=== PATIENT | female | born 1935 | race Caucasian/White ===

== ENCOUNTER 2017-10-08 03:48 | Inpatient (IN) | payer MEDICARE, BC ==
[2017-10-08] MEDS ORDERED: Ondansetron ODT 8 MG TAB ONE (04:11)
[2017-10-08 04:46] LABS: Hemoglobin 14.7 g/dL (12.0-16.0); Mean Corpuscular HGB CONC 33.6 g/dL (32.0-36.0); Mean Corpuscular Hemoglobin 33.3 pg (27.0-31.0); Mean Corpuscular Volume 99.1 fl (81.0-99.0); Mean Platelet Volume 8.5 fL (7.4-10.4); Platelet Count 218 thou/uL (130-400); RBC Distribution Width 12.3 % (11.5-14.5); Red Blood Cell (RBC) Count 4.41 mill/uL (4.20-5.40); White Blood Cell (WBC) Count 26.9 thou/uL (4.8-10.8)
[2017-10-08 05:06] LABS: ALT (SGPT) 31 U/L (8-55); AST (SGOT) 43 U/L (5-34); Albumin 4.1 g/dL (3.4-4.8); Alkaline Phosphatase 59 U/L (40-150); Anion Gap 19 mmol/L (10-20); BUN (Urea Nitrogen) 15 mg/dL (9.8-20.1); Band 13 % (5-11); Bilirubin, Total 0.6 mg/dL (0.2-1.2); Calc. Creatinine Clearance 0 mL/min (70-130); Calcium 10.4 mg/dL (7.8-10.44); Carbon Dioxide 24 mmol/L (23-31); Chloride 101 mmol/L (98-107); Estimated GFR-MDRD 38; Globulin 3.3 g/dL (2.4-3.5); Glucose 169 mg/dL (83-110); Lipase 16 U/L (8-78); Lymphocytes 10 % (21-51); MDiff Complete? YES; Monocytes 9 % (0-10); Neutrophil 68 % (42-75); Potassium 3.8 mmol/L (3.5-5.1); Protein, Total 7.4 g/dL (6.0-8.3); Sodium 140 mmol/L (136-145)
[2017-10-08 05:20] LABS: Bilirubin Small (Negative); Blood, Urine Negative (Negative); Glucose, Urine (Dipstick) Negative (Negative); Leukocyte Negative (Negative); Nitrite Negative (Negative); Protein, Urine (Dipstick) Trace mg/dL (Neg-Trace); Specific Gravity, Urine 1.025 (1.005-1.030)
[2017-10-08 05:22] LABS: Clarity Clear (Clear)
[2017-10-08] MEDS ORDERED: Morphine 4 MG/ML VIAL ONE (05:34)
[2017-10-08] MEDS ORDERED: Promethazine HCl 25 MG/ML VIAL ONE (05:34)
[2017-10-08] MEDS ORDERED: hydrALAZINE 20 MG/ML VIAL ONE (05:34)
[2017-10-08 06:25] LABS: Other Microscopic Description Less than 2 mL rec'd
[2017-10-08] MEDS ORDERED: metroNIDAZOLE 500 MG/100 ML BAG ONE (06:36)
[2017-10-08] MEDS ORDERED: HYDROcodone/Acetaminophen 10/325 mg Tablet PO PRN (08:07)
[2017-10-08] MEDS ORDERED: Acetaminophen 325 MG TAB PO PRN (08:07)
[2017-10-08] MEDS ORDERED: HYDROcodone/Acetaminophen 5/325 mg Tablet PO PRN (08:07)
[2017-10-08] MEDS ORDERED: Ondansetron ODT 4 MG TAB PO PRN (08:07)
[2017-10-08] MEDS ORDERED: Ondansetron HCl/PF 4 MG/2 ML Vial IVP PRN (08:07)
[2017-10-08 08:17] VITALS: BMI 22.8
[2017-10-08] MEDS: Sodium Chloride 0.9% 1,000 ML IV SCH ×2 (08:42→19:24)
[2017-10-08] MEDS ORDERED: Famotidine/PF 20 mg/2ml Vial SLOW IVP SCH (09:00)
--- NOTE | 2017-10-08 09:00 | CT ---
PRELIMINARY REPORT/[facility]/EMERGENCY AFTER HOURS PROCEDURE: Addendum created by Constantine Oviedo MD on 10/08/2017 6:09 AM Central Time ([place] & [place]) Findings were discussed with Brianne Brandon at 10/08/2017 6:09 AM CDT. Initial Report created on 10/08/2017 6:00 AM Central Time ([place] & [place]) EXAM: CT Abdomen and Pelvis Without Intravenous Contrast EXAM DATE/TIME: Exam ordered 10/08/2017 5:42 AM CLINICAL HISTORY: 82 years old, female; Signs and symptoms; Nausea and vomiting; Prior surgery; Surgery type: Surgical history of appendectomy, surgical history of hysterectomy, pacemaker. Left hip replacement, carpal tu nnel, skin ca removed x3, hemmoroidectomy; Patient HX: Er 14; F 82 presents to ed with n/v/d that beg an thursday at 1800. Denies any sick contacts. Pt denies blood in her vomit or fever. States that he r abdomen has had a cramping sensation since onset. Pt did not receive any medications from ems. HX o f multiple myeloma, currently in remission. TECHNIQUE: Axial computed tomography images of the abdomen and pelvis without intravenous contrast. Coronal reformatted images were created and reviewed. COMPARISON: No relevant prior studies available. FINDINGS: Lower thorax: There is subpleural atelectasis of the dependent portions of the lungs. A moderate hiatal hernia is present. ABDOMEN: Liver: There are no focal liver lesions identified. Gallbladder and bile ducts: The gallbladder is normal. There is no evidence of biliary ductal dilatio n. No calcified stones. Pancreas: The pancreas appears normal. No ductal dilation. Spleen: The spleen is normal. Adrenals: The adrenal glands are normal. Kidneys and ureters: The kidneys appear normal. No obstructing stones. No hydronephrosis. Stomach and bowel: There is marked thickening of the descending and sigmoid colon with marked pericol onic inflammatory stranding suggestive of colitis of infectious, inflammatory or ischemic etiology. T he stomach is normal. The duodenum is unremarkable. Thickening of the ascending and transverse colon may also be present although this may be related to under distention rather than definite colitis. Appendix: No findings to suggest acute appendicitis. PELVIS: Bladder: The bladder is normal. There is fluid in the LEFT paracolic bladder. No stones. Reproductive: The uterus is not visualized, and may be atrophic or surgically absent. ABDOMEN and PELVIS: Intraperitoneal space: There is a small amount of free pelvic fluid present. No free air. Bones/joints: Patient is post LEFT hip arthroplasty. No acute fracture. No dislocation. Soft tissues: Normal. Vasculature: Normal. No abdominal aortic aneurysm. Lymph nodes: Normal. No enlarged lymph nodes. IMPRESSION: There is marked thickening of the descending and sigmoid colon with extensive pericolonic inflammator y stranding suggestive of colitis of infectious, inflammatory or ischemic etiology. Thank you for allowing us to participate in the care of your patient. Dictated and Authenticated by: Constantine Oviedo MD 10/08/2017 6:00 AM Central Time ([place] & [place]) FINAL REPORT CT ABDOMEN AND PELVIS NONCONTRAST: DATE: 10/08/17. TIME: Performed on an emergency basis at 0543 hours. HISTORY: Flank pain. COMPARISON: 06/21/16. FINDINGS: Findings agree with the preliminary report from [facility]. There is no CT evidence of urinar y tract obstruction or calcification. Lack of contrast limits evaluation for other abnormalities. S evere inflammation of the left colon in its long segment. Cause is not apparent. It is greater than on the 2016 exam. POS: [facility]
[2017-10-08] MEDS: Famotidine 40 MG/4 ML VIAL SLOW IVP SCH ×2 (09:39→20:34)
[2017-10-08] MEDS: metroNIDAZOLE 500 MG in Premix Bag 1 BAG IVPB SCH ×2 (12:00→18:10)
--- NOTE | 2017-10-08 13:59 | HP ---
DATE OF ADMISSION: 10/08/2017 PRIMARY CARE PHYSICIAN: Dr. Luis Enrique Aquino PRIMARY ONCOLOGIST: Dr. Jimenez PRIMARY SUPERINTENDENT MENAGERIE: Dr. Tapan Mireles TIME OF SERVICE: 1000 CHIEF COMPLAINT: Abdominal pain, nausea, vomiting, diarrhea. HISTORY OF PRESENT ILLNESS: Ms. Brian is an 82-year-old female with a history of multiple myeloma in itially thought to be in remission, but was recently told she may need to restart medications for chr onic back pain, hypertension, hyperlipidemia who comes into the emergency department, the evening of 10/07/2017 for complaints of acute onset of abdominal pain. The pain started around 1800 hours. It was described as sharp, crampy, diffuse pain. It was accompanied by nausea and vomiting, and multipl e episodes of watery stools without blood. She was seen in the emergency department, white blood cell count elevated at 26.9 with a bandemia, h eart rate was normal, but is on atenolol, she was noted to have increased respiratory rate, temperatu re 99.0, and good oxygen saturations. No lactic acid was done. In the emergency department, she got IV fluids, IV antibiotics and a CT scan that showed a right-side d colitis. We were subsequently called for admission. The patient was accepted by the director of partner marketing early this morning and I am seeing her for a formal evalua tion and admission. She is still complaining of pain. She is complaining of dry mouth and being thirsty. She denies any current abdominal pain, no fevers, chills or rigors. No hematemesis or hematochezia, no melena. PAST MEDICAL HISTORY: 1. Multiple myeloma. 2. Chronic back pain. 3. Hyperlipidemia. 4. Hypertension. 5. Hypokalemia, recurrent. 6. Bradycardia status post permanent pacemaker. PAST SURGICAL HISTORY: 1. Appendectomy. 2. Total hysterectomy and bilateral salpingo-oophorectomy. 3. Permanent pacemaker placement. 4. Left total hip arthroplasty. 5. Bilateral carpal tunnel release. 6. Skin cancer removal x3. 7. Hemorrhoidectomy. HOME MEDICATIONS: She is unsure, current list in the computer shows: 1. Clonidine TTS 3. 2. Atenolol 50 mg p.o. daily. 3. Lisinopril 2.5 mg daily. 4. Folic acid 1 mg daily. 5. Valtrex 500 mg daily. 6. Tramadol 50 mg p.o. q.6 hours p.r.n. 7. Premarin 0.625 mg p.o. daily. 8. Protonix 20 mg daily. 9. Nitrofurantoin 100 mg p.o. b.i.d. ALLERGIES: STRAWBERRY, COFFEE, CODEINE, and CHOCOLATE FLAVOR. FAMILY HISTORY: Negative for clotting or bleeding disorder, no immune dysfunction, no blood tumors s he knows of. SOCIAL HISTORY: Negative for habits x3. REVIEW OF SYSTEMS: A 10-point review of systems was performed and was negative for all systems excep t as per HPI. PHYSICAL EXAMINATION: VITAL SIGNS: Temperature 97.7, pulse 65, blood pressure 219/108, respiratory rate 20, satting 95% on room air. Blood pressure currently 111/60. GENERAL: She is awake. She is alert. She is oriented x3. She has an essential tremor. She is not noted to be in any acute distress. She looks like she does not feel well. HEENT: Head is normocephalic, atraumatic. Pupils are equal, reactive bilaterally, mucous membranes are moist. She has no visible lesions or thrush. NECK: Supple. She has no lymphadenopathy, no JVD, no thyromegaly. She has normal carotid upstrokes . I do not appreciate bruits. CHEST: Her lungs are clear. She has good air movement. Symmetrical chest excursion. No wheeze, no rales, no rhonchi. CARDIOVASCULAR: She has a normal cardiac and regular. Normal S1 and S2. I do not appreciate murmur s. ABDOMEN: Soft, diffusely tender on the right more than the left. She has no rebound, rigidity or gu arding. She has hyperactive bowel sounds present x4 quadrants. EXTREMITIES: No cyanosis, clubbing with trace pedal edema. SKIN: Warm and well perfused. She has no rashes or lesions. NEUROLOGIC: Cranial nerves II-XII grossly intact. She does have a kinetic tremor of her arms and up per body. She has no resting tremors. No other focal neurologic deficits and normal speech pattern. MUSCULOSKELETAL: Shows large joints to be uninflamed. She has no palpable effusions, good range of motion and no inflammation. LABORATORY DATA: Sodium 140, potassium 3.8, chloride 101, bicarb 24, BUN 15, creatinine 1.33, glucos e 169 and calcium 10.4. The liver functions are normal except for AST barely elevated at 43. CBC sh owed a white count of 26.9. She has 68% granulocytes, 13% bands. Hemoglobin 14.7, hematocrit 43.7. CT scan of the abdomen and pelvis in the emergency department showed a thickening of the descending a nd sigmoid colon on the left with extensive pericolonic inflammatory stranding suggestive of colitis and unspecified if infectious, inflammatory or ischemic. ASSESSMENT AND PLAN: 1. Left-sided colitis, descending and sigmoid involvement. Continue her on Levaquin and Flagyl. We will ask GI to evaluate. We will keep her n.p.o. at present except for ice chips. She may need end oscopy. White blood cell count was 26.9, she was tachypneic on arrival, she was hypertensive, rather than hypotensive, had no fevers that would suggest a bacterial infection. She does meet sepsis crit ertom. She got fluids in the emergency department appropriately and antibiotics. We will continue to follow. I have sent off stool studies for viral, C. diff, and bacterial infections. We will follow up on the results. 2. Multiple myeloma, not acutely active. 3. Hypertension. Continue home medications when she is able to take oral, we will have p.r.n. hydra lazine if needed. 4. Hyperlipidemia. 5. History of sinus bradycardia or symptomatic bradycardia status post permanent pacemaker placement .
[2017-10-08] MEDS: Dicyclomine 10 MG CAP PO PRN (20:33)
[2017-10-08] MEDS: traMADol HCl 50 MG TAB PO PRN (20:33)
--- NOTE | 2017-10-08 21:12 | CON ---
DATE OF CONSULTATION: 10/08/2017 HISTORY OF PRESENT ILLNESS: Patient is an 82-year-old female who was in her normal state o f health until about 24-48 hours prior to admission when she developed severe abdominal pain. She de nies any recent antibiotic use, any nausea or vomiting. She had diarrhea that is somewhat blood ting ed. She is having ongoing treatment for multiple myeloma, which includes an injection once a week. PAST MEDICAL HISTORY: Significant for multiple myeloma, chronic back pain, hyperlipidemia, hypertens ion. PAST SURGICAL HISTORY: Includes pacemaker, hemorrhoidectomy, hip surgery, hysterectomy. HOME MEDICATIONS: Include multivitamin 1 p.o. daily, Tenormin 50 mg p.o. daily, Ecotrin 81 mg p.o. d aily, folic acid 1 mg p.o. daily, Catapres patch 0.3 mg every 7 days, potassium chloride 10 mEq p.o. b.i.d., valacyclovir 500 mg p.o. daily, tramadol 50 mg p.o. q.6 hours. ALLERGIES: Include STRAWBERRIES, CHOCOLATE, CODEINE, COFFEE, and ACETAMINOPHEN. SOCIAL HISTORY: She does not smoke or drink. FAMILY HISTORY: Negative for GI or liver disease. REVIEW OF SYSTEMS: Constitutional: No fever or chills, no weight loss. Eyes: No blurred vision or double vision. ENT: No sore throat or earaches. Cardiovascular: No chest pain or palpitation. P ulmonary: No shortness of breath, cough, or wheezing. Gastrointestinal: See above. : No hematu jessie or dysuria. Musculoskeletal: No joint pain or muscle ache. Skin: No rashes. Neurologic: No numbness or seizure activity. PHYSICAL EXAMINATION: GENERAL: Shows an ill-appearing old female in no acute distress. VITAL SIGNS: Temperature 97.9, pulse 83, respiratory rate 18, blood pressure 122/63. HEENT: Unremarkable. NECK: Supple. CHEST: Clear. CARDIOVASCULAR: Regular rate and rhythm. ABDOMEN: Slightly protuberant, diffusely tender to minimal palpation. Bowel sounds are hypoactive. RECTAL: Deferred. EXTREMITIES: Normal. NEUROLOGIC: Nonfocal. LABORATORY DATA: Shows a white blood cell count of 26.9, 13% bands. Creatinine 1.33, glucose 169, A ST 43. Urinalysis is negative. Abdominal pelvic CT shows marked thickening of the descending and si gmoid colon with extensive pericolonic inflammatory stranding. Laboratory shows a stool lactoferrin to be positive. Stool for rotavirus is negative. Stool for Clostridium difficile is both antigen an d toxin positive. Stool occult blood is positive. ASSESSMENT: 1. Clostridium difficile colitis. 2. History of multiple myeloma. RECOMMENDATIONS: 1. P.o. vancomycin. 2. Agree with IV metronidazole. 3. Hydration.
[2017-10-09] MEDS: metroNIDAZOLE 500 MG in Premix Bag 1 BAG IVPB SCH ×5 (00:24→23:32)
[2017-10-09] MEDS: traMADol HCl 50 MG TAB PO PRN (00:37)
[2017-10-09] MEDS: Sodium Chloride 0.9% 1,000 ML IV SCH ×4 (05:12→20:19)
[2017-10-09] MEDS: Dicyclomine 10 MG CAP PO PRN (05:48)
[2017-10-09 06:08] LABS: ALT (SGPT) 17 U/L (8-55); AST (SGOT) 21 U/L (5-34); Albumin 2.9 g/dL (3.4-4.8); Alkaline Phosphatase 33 U/L (40-150); Anion Gap 9 mmol/L (10-20); BUN (Urea Nitrogen) 24 mg/dL (9.8-20.1); Bilirubin, Total 0.8 mg/dL (0.2-1.2); Calc. Creatinine Clearance 42 mL/min (70-130); Calcium 7.9 mg/dL (7.8-10.44); Carbon Dioxide 25 mmol/L (23-31); Chloride 105 mmol/L (98-107); Estimated GFR-MDRD 57; Globulin 2.1 g/dL (2.4-3.5); Glucose 96 mg/dL (83-110); Magnesium 1.4 mg/dL (1.6-2.6); Potassium 3.4 mmol/L (3.5-5.1); Sodium 136 mmol/L (136-145)
[2017-10-09 06:12] LABS: Band 13 % (5-11); Hemoglobin 10.9 g/dL (12.0-16.0); Lymphocytes 6 % (21-51); MDiff Complete? YES; Mean Corpuscular Hemoglobin 34.3 pg (27.0-31.0); Mean Platelet Volume 8.4 fL (7.4-10.4); Monocytes 7 % (0-10); Myelocyte 1 % (0-0); Neutrophil 73 % (42-75); Platelet Count 168 thou/uL (130-400); RBC Distribution Width 12.6 % (11.5-14.5); Red Blood Cell (RBC) Count 3.18 mill/uL (4.20-5.40); White Blood Cell (WBC) Count 21.7 thou/uL (4.8-10.8)
[2017-10-09] MEDS ORDERED: Magnesium 2 GM/NS 0.9% 100 ML 2 GM in Premix Bag 1 BAG IVPB SCH (08:00)
[2017-10-09] MEDS: Potassium Chloride 20 MEQ TAB PO SCH ×2 (08:46→12:05)
[2017-10-09] MEDS: Vancomycin HCl 25 MG/ML Oral PO SCH ×4 (08:46→20:17)
[2017-10-09] MEDS: Famotidine 40 MG/4 ML VIAL SLOW IVP SCH ×2 (10:43→20:19)
--- NOTE | 2017-10-09 15:45 | PRG ---
DATE OF SERVICE: 10/09/2017 SUBJECTIVE: The patient is feeling much better today. She is having less bowel movements and much l ess pain. OBJECTIVE: VITAL SIGNS: Temperature 98.2, pulse 70, respiratory rate 18, blood pressure 95/55. LABORATORY DATA: CBC shows a white blood cell count of 21.5, hemoglobin 10.9 and 13% bands. ASSESSMENT: Clostridium difficile colitis - improved. RECOMMENDATIONS: Continue vancomycin.
--- NOTE | 2017-10-09 22:23 | PDOC.PN ---
- Subjective Encounter Start Date: 10/09/17 Encounter Start Time: 09:45 feeling better, fabby some po, no f/C, no N/v, diarrhea slowing, no blood. IV flagyl, po vanc, GI following 10 point ROS performed and neg for all systems except as per HPI - Objective Resuscitation Status: Resuscitation Status FULL:Full Resuscitation MAR Reviewed: Yes Vital Signs & Weight: Vital Signs (12 hours) Temp Pulse Resp BP Pulse Ox 10/09/17 21:36 99.6 F 82 18 94 L 10/09/17 20:00 99.6 F 82 18 118/63 94 L Weight Weight 125 lb I&O: 10/08/17 10/09/17 10/10/17 06:59 06:59 06:59 Intake Total 1650 940 Output Total 350 Balance 1300 940 Result Diagrams: 10/10/17 04:39 10/10/17 04:39 Phys Exam - Physical Examination Constitutional: NAD HEENT: PERRLA, moist MMs, sclera anicteric, oral pharynx no lesions Neck: no nodes, no JVD, supple, full ROM Respiratory: no wheezing, no rales, no rhonchi, clear to auscultation bilateral Cardiovascular: RRR, no significant murmur, no rub Gastrointestinal: soft, non-tender, no distention, positive bowel sounds Musculoskeletal: pulses present, edema present Neurological: non-focal, normal sensation, moves all 4 limbs Lymphatic: no nodes Psychiatric: normal affect, A&O x 3 Skin: no rash, normal turgor, cap refill <2 seconds Dx/Plan (1) C. difficile colitis Status: Acute Comment: IV flagyl and po vanc. CCM, po, out of bed (2) Sepsis Code(s): A41.9 - SEPSIS, UNSPECIFIED ORGANISM Status: Acute Qualifiers: Sepsis type: sepsis due to unspecified organism Qualified Code(s): A41.9 - Sepsis, unspecified organism (3) Dehydration Code(s): E86.0 - DEHYDRATION Status: Resolved Comment: (4) GERD (gastroesophageal reflux disease) Code(s): K21.9 - GASTRO-ESOPHAGEAL REFLUX DISEASE WITHOUT ESOPHAGITIS Status: Chronic Qualifiers: Esophagitis presence: without esophagitis Qualified Code(s): K21.9 - Gastro -esophageal reflux disease without esophagitis (5) Hyperlipidemia Code(s): E78.5 - HYPERLIPIDEMIA, UNSPECIFIED Status: Chronic Qualifiers: Hyperlipidemia type: unspecified Qualified Code(s): E78.5 - Hyperlipidemia , unspecified (6) Hypertension Code(s): I10 - ESSENTIAL (PRIMARY) HYPERTENSION Status: Chronic Qualifiers: Hypertension type: essential hypertension Qualified Code(s): I10 - Essential (primary) hypertension (7) Multiple myeloma in remission Code(s): C90.01 - MULTIPLE MYELOMA IN REMISSION Status: Chronic Comment: - Plan cont current plan of care, plan discussed w/ family, continue antibiotics, PT/OT , out of bed/ambulate, DVT proph w/SCDs * .
[2017-10-10] MEDS: Dicyclomine 10 MG CAP PO PRN (03:18)
[2017-10-10 04:57] LABS: #Eosinphils 0.1 thou/uL (0.0-0.7); #Lymphocytes 1.9 thou/uL (1.20-3.40); #Monocytes 1.8 thou/uL (0.11-0.59); #Neutrophils 10.3 thou/uL (1.40-6.50); %Basophils 0.1 % (0.0-1.0); %Eosinophils 0.5 % (0.0-10.0); %Lymphocytes 13.8 % (21.0-51.0); %Monocytes 12.9 % (0.0-10.0); %Neutrophils 72.8 % (42.0-75.0); Mean Corpuscular HGB CONC 34.1 g/dL (32.0-36.0); Mean Corpuscular Hemoglobin 35.2 pg (27.0-31.0); Mean Platelet Volume 8.3 fL (7.4-10.4); Platelet Count 169 thou/uL (130-400); RBC Distribution Width 12.4 % (11.5-14.5); Red Blood Cell (RBC) Count 2.84 mill/uL (4.20-5.40); White Blood Cell (WBC) Count 14.1 thou/uL (4.8-10.8)
[2017-10-10 05:15] LABS: Anion Gap 11 mmol/L (10-20); BUN (Urea Nitrogen) 14 mg/dL (9.8-20.1); Calc. Creatinine Clearance 48 mL/min (70-130); Calcium 7.9 mg/dL (7.8-10.44); Carbon Dioxide 21 mmol/L (23-31); Chloride 108 mmol/L (98-107); Estimated GFR-MDRD 66; Glucose 82 mg/dL (83-110); Magnesium 1.7 mg/dL (1.6-2.6); Potassium 3.6 mmol/L (3.5-5.1); Sodium 136 mmol/L (136-145)
[2017-10-10] MEDS: metroNIDAZOLE 500 MG in Premix Bag 1 BAG IVPB SCH (05:33)
[2017-10-10] MEDS: Sodium Chloride 0.9% 1,000 ML IV SCH (05:33)
[2017-10-10] MEDS: Vancomycin HCl 25 MG/ML Oral PO SCH ×4 (09:02→19:40)
[2017-10-10] MEDS: Famotidine 40 MG/4 ML VIAL SLOW IVP SCH ×2 (09:03→19:37)
--- NOTE | 2017-10-10 11:26 | PRG ---
DATE OF SERVICE: 10/10/2017 SUBJECTIVE: The patient is feeling much better. She is having less pain. She is not having any emile sea or vomiting. Her diarrhea seems to be improved. OBJECTIVE: VITAL SIGNS: Temperature 98.6, pulse 68, respiratory rate 16, blood pressure 120/67. CHEST: Clear. CARDIOVASCULAR: Regular rate and rhythm. ABDOMEN: Diffusely tender, but less so than on initial examination. LABORATORY DATA: Shows a white blood cell count of 14.1, hemoglobin 10, hematocrit 29.4. ASSESSMENT: 1. Clostridium difficile colitis - improving. 2. History of multiple myeloma. RECOMMENDATIONS: 1. Continue vancomycin orally. 2. Discontinue metronidazole IV. 3. Stable for discharge tomorrow if improvement continues.
--- NOTE | 2017-10-10 14:21 | PDOC.PN ---
- Subjective Encounter Start Date: 10/10/17 Encounter Start Time: 09:50 feeling much better. Not eating well, not drinking as much. refusing to get up and walk with walking program. [facility] pt and daughter gabriela to ambulate. IV failed and removed, will attempt to leave out, change Flagyl to po for today and then encourage po intake. \no F/C, no n/v/C, had 10+ small BM 7p-7a and 5 more since 7a. starting to become thicker. 10 point ROS performed and neg for all systems except as per HPI - Objective Resuscitation Status: Resuscitation Status FULL:Full Resuscitation MAR Reviewed: Yes Vital Signs & Weight: Vital Signs (12 hours) Temp Pulse Resp BP Pulse Ox 10/10/17 11:45 98.4 F 74 16 139/67 95 10/10/17 08:00 98.6 F 68 16 95 10/10/17 07:10 98.6 F 68 16 128/67 95 Weight Weight 125 lb I&O: 10/09/17 10/10/17 10/11/17 06:59 06:59 06:59 Intake Total 1650 1570 Output Total 350 Balance 1300 1570 Result Diagrams: 10/10/17 04:39 10/10/17 04:39 Phys Exam - Physical Examination Constitutional: NAD HEENT: PERRLA, moist MMs, sclera anicteric, oral pharynx no lesions Neck: no nodes, no JVD, supple, full ROM Respiratory: no wheezing, no rales, no rhonchi, clear to auscultation bilateral Cardiovascular: RRR, no significant murmur, no rub Gastrointestinal: soft, non-tender, no distention, positive bowel sounds Musculoskeletal: pulses present, edema present Neurological: non-focal, normal sensation, moves all 4 limbs Lymphatic: no nodes Psychiatric: normal affect, A&O x 3 Skin: no rash, normal turgor, cap refill <2 seconds Dx/Plan (1) C. difficile colitis Status: Acute Comment: po flagyl and po vanc. CCM, po, out of bed, plan to stop po flagyl in AM (2) Sepsis Code(s): A41.9 - SEPSIS, UNSPECIFIED ORGANISM Status: Acute Qualifiers: Sepsis type: sepsis due to unspecified organism Qualified Code(s): A41.9 - Sepsis, unspecified organism (3) Dehydration Code(s): E86.0 - DEHYDRATION Status: Resolved Comment: (4) GERD (gastroesophageal reflux disease) Code(s): K21.9 - GASTRO-ESOPHAGEAL REFLUX DISEASE WITHOUT ESOPHAGITIS Status: Chronic Qualifiers: Esophagitis presence: without esophagitis Qualified Code(s): K21.9 - Gastro -esophageal reflux disease without esophagitis (5) Hyperlipidemia Code(s): E78.5 - HYPERLIPIDEMIA, UNSPECIFIED Status: Chronic Qualifiers: Hyperlipidemia type: unspecified Qualified Code(s): E78.5 - Hyperlipidemia , unspecified (6) Hypertension Code(s): I10 - ESSENTIAL (PRIMARY) HYPERTENSION Status: Chronic Qualifiers: Hypertension type: essential hypertension Qualified Code(s): I10 - Essential (primary) hypertension (7) Multiple myeloma in remission Code(s): C90.01 - MULTIPLE MYELOMA IN REMISSION Status: Chronic Comment: - Plan * .
[2017-10-10] MEDS ORDERED: metroNIDAZOLE 500 MG TAB PO SCH (15:00)
[2017-10-10 23:07] LABS: Norovirus GI Negative (Negative); Norovirus GII Negative (Negative)
[2017-10-11] MEDS: traMADol HCl 50 MG TAB PO PRN (00:15)
[2017-10-11 05:24] LABS: Anion Gap 8 mmol/L (10-20); BUN (Urea Nitrogen) 7 mg/dL (9.8-20.1); Calc. Creatinine Clearance 51 mL/min (70-130); Calcium 8.3 mg/dL (7.8-10.44); Carbon Dioxide 23 mmol/L (23-31); Chloride 110 mmol/L (98-107); Estimated GFR-MDRD 72; Glucose 74 mg/dL (83-110); Magnesium 1.7 mg/dL (1.6-2.6); Potassium 3.4 mmol/L (3.5-5.1); Sodium 138 mmol/L (136-145)
[2017-10-11 05:41] LABS: Band 1 % (5-11); Eosinophils 1 % (0-10); Hemoglobin 9.8 g/dL (12.0-16.0); Lymphocytes 18 % (21-51); MDiff Complete? YES; Mean Platelet Volume 8.6 fL (7.4-10.4); Monocytes 13 % (0-10); Neutrophil 67 % (42-75); Platelet Count 195 thou/uL (130-400); RBC Distribution Width 12.2 % (11.5-14.5); Red Blood Cell (RBC) Count 2.81 mill/uL (4.20-5.40)
--- NOTE | 2017-10-11 09:43 | PRG ---
DATE OF SERVICE: 10/11/2017 SUBJECTIVE: The patient is feeling much better. She has only had 2 bowel movements today. She has no abdominal pain. She has no nausea or vomiting. OBJECTIVE: VITAL SIGNS: Temperature 98.2, pulse 65, respiratory rate 18, blood pressure 122/86. CHEST: Clear. CARDIOVASCULAR: Regular rate and rhythm. ABDOMEN: Soft and nontender. LABORATORY DATA: Shows white blood cell count of 9.0, hemoglobin 9.8, hematocrit 28.9. Chemistry sh owed potassium 3.4, chloride 110, BUN 7, and glucose 74. ASSESSMENT: 1. Clostridium difficile colitis - improved. 2. History of multiple myeloma. RECOMMENDATIONS: 1. Treatment course of vancomycin of 2 weeks total. 2. Recommended beginning over the counter probiotic Florastor for 30 days. 3. Follow up in GI in 2-3 weeks. 4. Stable for discharge from gastrointestinal standpoint.
[2017-10-11] MEDS ORDERED: Aspirin 81 mg Enteric Coated Tablet PO SCH (09:45)
[2017-10-11] MEDS ORDERED: Folic Acid 1 MG TAB PO SCH (09:45)
[2017-10-11] MEDS ORDERED: Multivitamin W/ Minerals 1 TAB PO SCH (09:45)
[2017-10-11] MEDS ORDERED: Atenolol 25 MG TAB PO SCH (09:45)
[2017-10-11] MEDS ORDERED: valACYclovir 500 MG TAB PO SCH (09:45)
[2017-10-11] MEDS: Famotidine 40 MG/4 ML VIAL SLOW IVP SCH (10:15)
[2017-10-11] MEDS: Vancomycin HCl 25 MG/ML Oral PO SCH ×2 (11:35→13:34)
[2017-10-11] MEDS ORDERED: traMADol HCl 50 MG TAB PO SCH (12:00)
[2017-10-11 13:38] VITALS: BP 158/78; TEMP 97.5
--- NOTE | 2017-10-11 14:13 | DIS ---
DATE OF ADMISSION: 10/08/2017 DATE OF DISCHARGE: 10/11/2017 PRIMARY CARE PHYSICIAN: Dr. Luis Enrique Aquino. PRIMARY YARN SPINNER: Dr. Guerrero Mora. DISCHARGE DIAGNOSES: 1. Clostridium difficile colitis. 2. Moderate dehydration. 3. Acute kidney injury. 4. Multiple myeloma. 5. Physical deconditioning. 6. Sepsis, resolved. 7. Hyperlipidemia. CONSULTATIONS: Gastroenterology, Dr. Edgar Lambert. PROCEDURES: None. HISTORY AND PHYSICAL: Ms. Brian is an 82-year-old female, who presented in the emergency department in the morning of 10/08/2017 with complaints of abdominal pain, nausea, vomiting, diarrhea. The patient was in normal state of health until 10/07, and abruptly around 1800 hours, she began to h ave profuse diarrhea and nausea and vomiting. She is unable to keep anything down including water. So, presented to the emergency department for evaluation. There she was found to have elevated white blood cell count, elevated blood pressure 219/108 due to p ain, respiratory rate of 20, and good oxygen saturations, and normal blood pressure. She was afebril e with temperature 97.7. She is diffusely tender in her abdomen. A CT scan was obtained that showed descending and sigmoid co litis. In the emergency department, she was given IV fluids, antibiotics with Zosyn, and a CT scan. We were called for admission. HOSPITAL COURSE: The patient was examined by me. She was placed in inpatient status. She was start ed on levofloxacin and Flagyl to cover for colitis as well. Stool studies including culture, ova, an d parasites, C. difficile, enterovirus PCR and norovirus PCR were sent. Her C. difficile screen did come back negative later that day. She was transitioned from Levaquin and Flagyl to Flagyl and oral vancomycin, and overnight, 10/08 to 10/09 improved. Her white blood cell count had come down some. She was having a few less bowel move ments and starting to form up slightly. She was still feeling extremely weak, and though was initial ly walking well when coming in, was refusing to get up with the walking program. She felt much juanito r continuing IV fluids overnight as her dehydration resolved, so she was continued on antibiotics, re commend to get out of bed and ambulate and IV fluids. By 10/10/2017, her IV had gone bad. We decided to leave her IV out and continue her on oral Flagyl a nd vancomycin. She was still having multiple bowel movements a day, but the volume was improved and the form was starting to become more solid. We discussed at length her needing to get up and ambulat e and she was agreeable. She also was not eating well, and it was encouraged that she eat and drink to match her output since her IV had come bad and we decided to leave her IV out. She was able to do so, but today, 10/11/2017, she is having some loose bowel movements, but mostly sediment. She was t olerating p.o. much better. She was afebrile, so it was keeping up with her output and was stable fo r discharge with outpatient followup. PHYSICAL EXAMINATION: The patient was seen and examined on the day of discharge. Discharge plan and disposition were discussed with the patient and her daughter [id number] at the [facility]. DISCHARGE MEDICATIONS: 1. Vancomycin 250 mg p.o. q.i.d. for 8 more days. 2. Aspirin 81 mg daily. 3. Atenolol 50 mg daily. 4. Clonidine TTS-3 changed weekly. 5. Folic acid 1 mg daily. 6. Multivitamin daily. 7. Potassium chloride 10 mEq b.i.d. 8. Tramadol 50 mg p.o. q.6 hours as needed. 9. Valacyclovir 50 mg p.o. daily. FOLLOWUP APPOINTMENTS: 1. Primary care physician, Dr. Aquino in a week. 2. Dr. Mora in 2-3 weeks. DISCHARGE CONDITION: Stable. DISPOSITION: Will be discharged home via private vehicle. DISCHARGE DIET: No restrictions. Heart healthy recommended. DISCHARGE ACTIVITY: As tolerated.
[2017-10-11] MEDS ORDERED: Potassium Chloride 10 MEQ TAB PO SCH (17:00)
[2017-10-12] MEDS ORDERED: Aspirin 81 mg Enteric Coated Tablet PO SCH (09:00)
[2017-10-12] MEDS ORDERED: Atenolol 25 MG TAB PO SCH (09:00)
[2017-10-12] MEDS ORDERED: valACYclovir 500 MG TAB PO SCH (09:00)
[2017-10-12] MEDS ORDERED: Multivitamin W/ Minerals 1 TAB PO SCH (09:00)
[2017-10-12] MEDS ORDERED: Folic Acid 1 MG TAB PO SCH (09:00)
[2017-10-15] MEDS ORDERED: cloNIDine 0.3mg/24 Hour PATCH TD SCH (09:00)
--- NOTE | 2017-11-19 15:04 | EKG ---
Test Reason : VOMITING Blood Pressure : / mmHG Vent. Rate : 061 BPM Atrial Rate : 060 BPM P-R Int : 000 ms QRS Dur : 144 ms QT Int : 484 ms P-R-T Axes : 000 -71 019 degrees QTc Int : 487 ms Electronic atrial pacemaker Right bundle branch block Left anterior fascicular block Bifascicular block Voltage criteria for left ventricular hypertrophy Abnormal ECG Confirmed by ARMINDA KAY ([id number]), commissioning editor TERESA PATEL ([id number] on 11/19/2017 3:03:29 PM Referred By: Confirmed By:ARMINDA KAY
== END 2017-10-11 13:50 | disposition home or self-care (01) | DRG 371 ==
LOC: ERS 03:48 → T4-B 07:54
PROVIDERS: ADMIT Internal Medicine; ATTEND Internal Medicine
DX: A04.72 Enterocolitis due to Clostridium difficile, not specified as recurrent (principal); A41.9 Sepsis, unspecified organism; N17.9 Acute kidney failure, unspecified; E86.0 Dehydration; C90.01 Multiple myeloma in remission; E78.5 Hyperlipidemia, unspecified; E87.6 Hypokalemia; G25.0 Essential tremor; G89.29 Other chronic pain; M54.9 Dorsalgia, unspecified; I10 Essential (primary) hypertension; Z95.0 Presence of cardiac pacemaker; K21.9 Gastro-esophageal reflux disease without esophagitis
CPT/HCPCS: 36415; 51701; 69210; 74176; 80048; 80053; 81003; 82274; 83630; 83690; 83735; 85025; 86403; 87045; 87046; 87324; 87449; 87493; 87798; 87899; 93005; 95992; 96361; 96365; 96367; 96368; 96375; 99203; 99213; A4216; A4353; G0463; J0360; J1956; J2270; J2550; J3475

== ENCOUNTER 2019-02-25 11:55 | Inpatient (IN) | payer MEDICARE, BC ==
--- NOTE | 2019-02-25 12:09 | CT ---
Head CT without contrast: 02/25/2019 COMPARISON: 08/04/2016 HISTORY: Level 1 stroke alert, slurred speech with right lower extremity weakness TECHNIQUE: Axial CT imaging at 5 mm intervals from vertex through skull base without contrast FINDINGS: Imaged paranasal sinuses and mastoid air cells well-aerated. No displaced calvarial fractur e. No intracranial hemorrhage, midline shift, or mass effect. Mild diffuse cerebral volume loss. Periventricular hypodensity noted, evidence of small vessel diseas e. No interval change when compared to the prior exam. Stable head CT. No intracranial hemorrhage. Results called to Dr. Brandon 12:05 PM 02/25/2019
[2019-02-25 12:15] LABS: Mean Corpuscular HGB CONC 33.2 g/dL (32.0-36.0); Mean Corpuscular Hemoglobin 33.4 pg (27.0-31.0); Mean Platelet Volume 9.9 fL (7.4-10.4); Platelet Count 146 thou/uL (130-400); Red Blood Cell (RBC) Count 3.59 mill/uL (4.20-5.40)
[2019-02-25 12:18] LABS: PTT 24.8 SEC (22.9-36.1)
[2019-02-25 12:25] LABS: ALT (SGPT) 21 U/L (8-55); AST (SGOT) 18 U/L (5-34); Alkaline Phosphatase 70 U/L (40-150); Anion Gap 18 mmol/L (10-20); BUN (Urea Nitrogen) 15 mg/dL (9.8-20.1); Bilirubin, Total 0.4 mg/dL (0.2-1.2); CK (CPK) 59 U/L (29-168); Calc. Creatinine Clearance 0 mL/min (70-130); Calcium 9.8 mg/dL (7.8-10.44); Carbon Dioxide 22 mmol/L (23-31); Chloride 102 mmol/L (98-107); Estimated GFR-MDRD 49; Globulin 3.6 g/dL (2.4-3.5); Glucose 167 mg/dL (83-110); Potassium 3.5 mmol/L (3.5-5.1); Protein, Total 7.6 g/dL (6.0-8.3); Sodium 138 mmol/L (136-145)
--- NOTE | 2019-02-25 12:34 | CT ---
CT ANGIOGRAM OF THE HEAD AND NECK: Date: 02/25/2019 COMPARISON: None HISTORY: Right lower extremity weakness, slurred speech TECHNIQUE: Axial CT imaging at 1.25 mm intervals from the vertex through the lung apices with IV contrast using a CT angiogram protocol. Coronal and sagittal 3-D reformatted imaging obtained. FINDINGS: There is mild increased linear interstitial density noted within the imaged lung apices. The retroantral fat and the parapharyngeal fat appears clear bilaterally. There is mild atherosclerotic calcification involving the aortic arch. Transvenous pacing device pres ent. The origin of the innominate artery, left common carotid artery, left subclavian artery, right common carotid artery, and right subclavian artery demonstrate no hemodynamically significant stenosis. There is no stenosis at the origin of either vertebral artery. Bilateral vertebral arteries are normal in course and contour with no evidence for stenosis. On the basis of NASCET criteria, there is no hemodynamically significant stenosis involving the inter nal carotid artery or common carotid artery on either side. There is calcified plaque at the origin of the left external carotid artery. Incidental note is made of a 6 mm hypodense nodule within the right lobe of the thyroid gland. There is no lymphadenopathy noted within the neck. The imaged paranasal sinuses/mastoid air cells appear well aerated. The basilar artery is patent. Branches of the basilar artery appear patent proximally. The posterior cerebral artery on the left appears occluded medial to the temporal horn of the left la teral ventricle, best seen on axial image 45. There is atherosclerotic calcification involving the cavernous carotid arteries bilaterally. The A1 segment, region of the anterior communicating artery, and JAIME branches appear unremarkable. The ICA bifurcation, the M1 segment, and the MCA bifurcation appears to be unremarkable bilaterally. Distal MCA branches appear grossly unremarkable bilaterally. No central arterial occlusion is seen involving the anterior circulation on either side. IMPRESSION: 1. No hemodynamically significant stenosis within the neck 2. Left FLUX CORE WELDER occlusion. Results called to Dr. Brandon at 12:30 PM 2018. Transcribed Date/Time: 02/25/2019 1:13 PM
--- NOTE | 2019-02-25 12:43 | RAD ---
RADIOGRAPH CHEST 1 VIEW: DATE: 02-25-19 TIME: 12:08 P.M. HISTORY: 83-year-old female with dyspnea. FINDINGS: There are no air space densities, pulmonary edema, pneumothorax, or cardiomegaly. The lateral costop hrenic angles are sharp. There is a dual-lead left subclavian pacemaker. There is no interval change compared to 08-04-16. IMPRESSION: 1. No acute cardiopulmonary findings. 2. Pacemaker. jn POS: CET
[2019-02-25 12:55] LABS: Band 4 % (5-11); Lymphocytes 5 % (21-51); MDiff Complete? YES; Monocytes 5 % (0-10); Neutrophil 86 % (42-75); Platelet Morphology Comment Appears Adequate
[2019-02-25 13:03] LABS: Bilirubin Negative (Negative); Blood, Urine Negative (Negative); Clarity Clear (Clear); Glucose, Urine (Dipstick) Normal (Negative); Leukocyte Negative Leu/uL (Negative); Nitrite Negative (Negative); Protein, Urine (Dipstick) Negative (Neg-Trace); Urobilinogen Normal mg/dL (Less than 2)
[2019-02-25] MEDS ORDERED: ISOVUE-370 76%-LOCM 1 ML ONE (13:33)
[2019-02-25] MEDS ORDERED: cloNIDine 0.1 MG TAB PO PRN (15:50)
[2019-02-25] MEDS ORDERED: Sodium Chloride 0.65% Nasal 44 ML BOT EA NARE PRN (15:50)
[2019-02-25] MEDS ORDERED: Diabetic Tussin 200 MG/10 ML UDCUP PO PRN (15:50)
[2019-02-25] MEDS ORDERED: hydrALAZINE 20 MG/ML VIAL SLOW IVP PRN (15:50)
[2019-02-25] MEDS ORDERED: Acetaminophen 325 MG TAB PO PRN (15:50)
[2019-02-25] MEDS ORDERED: Artificial Tears 18 DROP/0.9 ML EA EYE PRN (15:50)
[2019-02-25] MEDS ORDERED: Ondansetron PF 4 MG/2 ML Vial IVP PRN (15:50)
[2019-02-25] MEDS ORDERED: Loratadine 10 MG TAB PO PRN (15:50)
[2019-02-25] MEDS ORDERED: Calcium Carbonate 500 MG ChewTAB PO PRN (15:50)
[2019-02-25] MEDS ORDERED: Bisacodyl 10 MG SUPP PR PRN (15:50)
[2019-02-25] MEDS ORDERED: Senokot S 8.6-50 MG TAB PO PRN (15:50)
[2019-02-25] MEDS ORDERED: Loperamide HCl 2 MG CAP PO PRN (15:50)
[2019-02-25] MEDS ORDERED: Ondansetron ODT 4 MG TAB PO PRN (15:50)
[2019-02-25] MEDS ORDERED: Zolpidem Tartrate 5 MG TAB PO PRN (15:50)
[2019-02-25 15:54] VITALS: BMI 23.4
--- NOTE | 2019-02-25 16:08 | HP ---
PRIMARY CARE PHYSICIAN: Luis Enrique Aquino DO REASON FOR ADMISSION: Stroke-like symptoms. HISTORY OF PRESENT ILLNESS: An 83-year-old female, who has underlying history of hypertension as well as multiple myeloma. The patient lives at home with her daughter. Last night around 3, she woke up, at that time, the patient noticed that she was having difficulty lifting right side of body, especially both upper and lower extremities, but she was able to go to the bathroom, and she was able to return to the bed. This morning around 08:30, when she woke up, at that time, she was having more weakness on the right lower extremity, and her speech was slurred. The patient's daughter noticed that she was having weakness on the right side. She did not have any facial droop or sensory symptoms. The patient's daughter noticed something wrong, and that is why 911 was called, and Paramedics brought her to emergency room. When the patient arrived to ER, she was not a candidate for tPA or any intervention because of her late presentation. In the emergency room, CT brain was unremarkable. CT angiography showed left RADIATOR REPAIRER occlusion, but no stenosis within the neck. Her chest x-ray was unremarkable. Routine blood test including CBC showed leukocytosis. The patient has underlying history of multiple myeloma, and recently, she had relapse, and that is why the patient was started on newer multiple myeloma medication 16 days ago. The patient is taking that medication every day. She did not take that medication today. The patient's daughter noticed that since that medication started, the patient is downgoing. She is declining. Four days after starting that medication, the patient had rash, and that is why she was instructed to take Benadryl on daily basis. The patient is also taking prednisone every week. She took prednisone yesterday. When Paramedics took her from home, at that time , her blood pressure was very high, but subsequently, her blood pressure settled in the emergency room. When I saw this patient, at that time, I noticed that the patient was having more weakness on the right lower extremity compared to right upper extremity, and her speech was dysarthric. She does not have any headache, nausea, vomiting, or UTI symptoms. She did not have any constipation, diarrhea, melena, or hematochezia. REVIEW OF SYSTEMS: CONSTITUTIONAL: Negative for weight loss or gain, ability to conduct usual activities. SKIN: Negative for rash, itching. EYES: Negative for double vision, pain. ENT/MOUTH: Negative for nose bleeding, neck stiffness, pain, tenderness. CARDIOVASCULAR: Negative for palpitations, dyspnea on exertion, orthopnea. RESPIRATORY: Negative for shortness of breath, wheezing, cough, hemoptysis, fever or night sweats. GASTROINTESTINAL: Negative for poor appetite, abdominal pain, heartburn, nausea , vomiting, constipation, or diarrhea. GENITOURINARY: Negative for urgency, frequency, dysuria, nocturia. MUSCULOSKELETAL: Negative for pain, swelling. NEUROLOGIC/PSYCHIATRIC: Negative for anxiety, depression. ALLERGY/IMMUNOLOGIC: Negative for skin rash, bleeding tendency. See my HPI for pertinent positives and negatives. All other review of systems reviewed and negative except as mentioned in HPI. PAST MEDICAL HISTORY: History of multiple myeloma with relapse, on chemotherapy ; hypertension; dyslipidemia; history of CVA; history of chronic tremor; and chronic low back pain. PAST SURGICAL HISTORY: Appendicectomy, hysterectomy, pacemaker placement, left hip replacement, carpal tunnel repair, skin cancer removed x3, and hemorrhoidectomy. PAST PSYCHIATRIC HISTORY: Reviewed and negative. SOCIAL HISTORY: The patient lives at home with her daughter. No history of tobacco, alcohol, or illicit drug abuse. FAMILY HISTORY: No strong family history of CAD, CVA or cancer. ALLERGIES: 1. ASPIRIN GIVES HER STOMACH UPSET. 2. CODEINE. CURRENT HOME MEDICATIONS: The patient did not bring her home medication, so unable to review medication at this point. Based on the emergency room record, the patient is on the following medications: 1. Clonidine 0.3 mg transdermal every week. 2. Atenolol 50 mg daily. 3. Lisinopril 2.5 mg daily. 4. Folic acid 1 mg p.o. daily. 5. Omeprazole 10 mg p.o. daily. EMERGENCY ROOM COURSE: Reviewed. PHYSICAL EXAMINATION: VITAL SIGNS: On arrival, blood pressure 187/98, pulse 75, respiratory rate 18, temperature 98.6, saturation 98% on room air. Weight 65.7 kg. GENERAL: The patient is currently alert, awake, in no obvious acute distress. HEENT: Head, normocephalic and atraumatic. Eyes; pupils are round and reactive to light. Extraocular muscle intact. No nystagmus. ENT; oropharynx is within normal limits. Moist mucous membrane. No oral lesion. No pharyngeal erythema. No exudate. NECK: Supple. No JVD. No thyromegaly. No carotid bruit. LUNGS: Clear to auscultation without any rhonchi or rales. CARDIAC: S1 and S2. Regular. No murmur. No gallop. No rub. ABDOMEN: Soft. Bowel sounds present. Nontender. Nondistended. No organomegaly. No mass. No suprapubic tenderness. BACK: Unremarkable. No CVA tenderness. EXTREMITIES: Upper extremities; passive movement of all joints is normal. Lower extremities; no edema. Good distal pulsation. SKIN: No skin rash. HEMATOLOGICAL: No lymphadenopathy. PSYCHIATRIC: Normal affect. NEUROLOGIC: The patient is alert and oriented x3. Her speech is dysarthric. The patient has weakness on the right upper and lower extremities, predominantly on the right lower extremity. Sensation; intact, plantar extensor on the right side. Reflexes, symmetrical. Tremors noted. SIGNIFICANT LABORATORY DATA: EKG is showing pacemaker rhythm, right bundle- branch block pattern, LVH with repolarization changes. CT brain, based on my review, no acute intracranial process. CT angiography is showing left RADIATOR REPAIRER occlusion. No stenosis within the neck. Chest x-ray, normal. Significant labs: CBC; WBC 26.0, hemoglobin 12.0, platelet 146, MCV 101. INR 1.0. BMP; sodium 138, potassium 3.5, chloride 102, carbon dioxide 22, BUN 15, creatinine 1.07, glucose 167, calcium 9.8. LFT; AST 18, ALT 21, alkaline phosphatase 70, albumin 4.0. Troponin I less than 0.010. Urinalysis, unremarkable. ASSESSMENT AND PLAN: 1. Acute cerebrovascular accident. The patient has stroke-like symptoms with dysarthria, right-sided upper and lower extremity weakness, predominantly right lower extremity. Currently, CT brain is not showing any acute intracranial process. The patient does have chronic left RADIATOR REPAIRER occlusion, that cannot explain her current presentation. The patient has diffuse cerebral volume loss. At this point, the patient still has ongoing weakness on lower extremity as well as dysarthria. The patient will need admission. She will need PT, OT, Speech, Sales And Marketing Vice President, and Rehab consultations. Meanwhile, we will continue with Plavix 75 mg p.o. daily given the patient's aspirin allergy. We will consult Neurology. We will try to get information from [facility] that if the patient can have MRI or not. Depending upon clinical course, the patient will need rehab versus skilled placement. We will check lipid profile for risk stratification. 2. Leukocytosis, most likely related with the patient's use of prednisone yesterday. We will repeat CBC tomorrow. The patient does not have any clinical evidence of infection. 3. Macrocytosis. We will continue with folic acid and vitamin B12 therapy. 4. Multiple myeloma. The patient is getting newer chemotherapy along with Benadryl and steroid weekly. The patient is tolerating this medication, but family has concerned about declining with this medication. We will consult Oncology for their opinion. 5. Hypertension. We will continue the patient's home medication after verification of dose. Our goal is to keep blood pressure 140 to 160 systolic. 6. Deep venous thrombosis prophylaxis. Lovenox 40 mg subcutaneously daily. 7. Gastrointestinal prophylaxis. Pepcid 20 mg p.o. or IV b.i.d. CODE STATUS: The patient is full code. The patient's daughter is surrogate decision maker. DISPOSITION PLAN: Based on clinical course. We are expecting the patient to stay in the hospital more than 2 midnights. Plan of care was discussed with the patient and family member at bedside. Job ID: [id number] [facility]ITAL[facility]osalino
[2019-02-25] MEDS ORDERED: Clopidogrel Bisulfate 75 MG TAB PO SCH (16:15)
[2019-02-25] MEDS: Atorvastatin Calcium 40 MG TAB PO SCH (20:51)
--- NOTE | 2019-02-26 00:43 | CON ---
DATE OF CONSULTATION: 02/25/2019 HISTORY OF PRESENT ILLNESS: Ms. Brian is an 83-year-old female with a recent diagnosis of multiple myeloma, currently taking Revlimid, she started this 16 days ago. On the morning of admission, she woke and her daughter noticed that she was dragging her right leg and ambulating with a walker. She also was having some issues with her right arm, although it was not as severe. She had some facial droop as well as slurring of speech and it was difficult for her to answer all of her questions, so her daughter called 911. She was brought into the emergency room and was not a candidate for tPA because of the presentation. CT of the brain in the emergency room was unremarkable. MRI has not been done because of her pacemaker. CT angiography showed a left DISTRICT SALES COORDINATOR occlusion, but no stenosis within the neck. She is admitted for further monitoring. She does not take aspirin or Plavix at home. She states she was on aspirin prior to this, but a few months ago, it was stopped, she is not sure why. She thinks her right leg is already getting a little bit stronger and her speech is somewhat improved, but she is not back to her normal baseline since the beginning of the symptoms. PAST MEDICAL HISTORY: 1. Multiple myeloma. 2. Hypertension. 3. Hyperlipidemia. 4. History of TIA. 5. Chronic tremor. 6. Chronic low back pain. CURRENT MEDICATIONS: 1. Tylenol p.r.n. 2. Lipitor 40 mg p.o. at bedtime. 3. Dulcolax 10 mg p.o. daily. 4. Tums 1000 mg p.o. q.4 hours. 5. Catapres 0.1 mg p.o. q.4 hours p.r.n. 6. Plavix 75 mg p.o. now and 75 mg p.o. daily. 7. Lovenox 40 mg subcu daily. 8. Pepcid 20 mg p.o. daily. 9. Robitussin 200 mg p.o. q.4 hours p.r.n. 10. Hydralazine 10 mg IV q.4 hours p.r.n. 11. Claritin 10 mg p.o. daily. 12. Zofran 4 mg p.o. q.6 hours p.r.n. 13. Zofran 4 mg IV q.6 hours p.r.n. 14. Senokot two tabs p.o. b.i.d. p.r.n. 15. Ambien 5 mg p.o. at bedtime p.r.n. ALLERGIES: TYLENOL, CODEINE, AND CHOCOLATE FLAVORING. SOCIAL HISTORY: She is here with her daughter and several family members, who are quite supportive. She denies tobacco or alcohol use. REVIEW OF SYSTEMS: Otherwise 10-point review of systems is negative, she did have a rash after starting the Revlimid, but it is now resolved. PHYSICAL EXAMINATION: GENERAL: She is alert, awake, and oriented x3, in no acute distress. HEENT: Extraocular muscles are intact. Pupils react to light. She has no oral cavity lesions. NECK: Supple without lymphadenopathy. CARDIOVASCULAR: Regular rhythm. LUNGS: Clear to auscultation bilaterally. ABDOMEN: Hypoactive bowel sounds. Soft, nontender, nondistended. EXTREMITIES: No edema. NEUROLOGIC: Her speech is slow, but she is appropriate with me, she has good upper extremity strength. Her right lower extremity, she can raise off the bed to gravity, but she has no strength to resistance. LABORATORY DATA: White blood cell count 26.0, hemoglobin 12.0, and platelets 146. Sodium 138, potassium 3.5, chloride 102, CO2 of 22, BUN 15, creatinine 1.0, glucose 167, calcium 9.8, total bilirubin 0.4, AST 18, and ALT 21. DIAGNOSTIC DATA: CT of the brain done in the emergency room showed no acute hemorrhage. ASSESSMENT: Ms. Brian is an 83-year-old female with; 1. Multiple myeloma, currently on Revlimid, day 16. 2. Right lower extremity weakness and slurred speech, acute onset, probable transient ischemic attack if not a stroke. PLAN: 1. I would recommend Neurology consult and further workup per the stroke team. 2. Continue Plavix. 3. Hold Revlimid and steroids. 4. We will discuss further with her primary oncologist as an outpatient what she will need to be placed on further, but I recommend stopping the Revlimid . Job ID: [id number]
[2019-02-26 06:43] LABS: Band 5 % (5-11); Hemoglobin 10.6 g/dL (12.0-16.0); Lymphocytes 13 % (21-51); MDiff Complete? YES; Mean Corpuscular HGB CONC 33.3 g/dL (32.0-36.0); Mean Corpuscular Hemoglobin 33.7 pg (27.0-31.0); Monocytes 19 % (0-10); Neutrophil 63 % (42-75); Platelet Count 122 thou/uL (130-400); RBC Distribution Width 13.1 % (11.5-14.5); Red Blood Cell (RBC) Count 3.14 mill/uL (4.20-5.40); White Blood Cell (WBC) Count 17.2 thou/uL (4.8-10.8)
[2019-02-26 06:51] LABS: Anion Gap 13 mmol/L (10-20); BUN (Urea Nitrogen) 17 mg/dL (9.8-20.1); Calc. Creatinine Clearance 46 mL/min (70-130); Calcium 9.4 mg/dL (7.8-10.44); Carbon Dioxide 27 mmol/L (23-31); Cardiac Risk 4.1 (Less than 4.5); Chloride 103 mmol/L (98-107); Cholesterol 159 mg/dl (< 200 Desired); Estimated GFR-MDRD 62; Glucose 91 mg/dL (83-110); HDL Cholesterol 39 mg/dL (>60 Neg Risk); LDL Cholesterol, Calculated 65 mg/dL; Potassium 3.8 mmol/L (3.5-5.1); Sodium 139 mmol/L (136-145); Triglycerides 277 mg/dL (Less than 150)
[2019-02-26] MEDS ORDERED: Prevnar 13-Val Conj/PF 0.5 ML SYRINGE IM ONE (09:00)
--- NOTE | 2019-02-26 11:55 | PDOC.HOSPP ---
- Subjective Subjective: Patient seen and examined. No new complaints. No overnight events per family speech has improved, but weakness of right leg is persisted - Objective Vital Signs & Weight: Vital Signs (12 hours) Temp Pulse Pulse Pulse Resp BP BP 02/26/19 11:29 98.0 F 72 16 02/26/19 09:55 69 74 156/73 H 152/74 H 02/26/19 07:33 97.9 F 65 16 02/26/19 04:00 97.7 F 65 16 02/26/19 00:00 97.9 F 70 16 BP Pulse Ox 02/26/19 11:29 145/70 H 97 02/26/19 09:55 02/26/19 07:33 150/74 H 97 02/26/19 04:00 153/74 H 95 02/26/19 00:00 132/62 96 Weight Weight 128 lb 1.6 oz I&O: 02/25/19 02/26/19 02/27/19 06:59 06:59 06:59 Intake Total 120 Output Total 800 Balance -680 Result Diagrams: 02/26/19 05:17 02/26/19 05:17 Additional Labs: Accuchecks 02/25/19 12:02 POC Glucose 169 H EKG Reviewed by me: Yes ROS - Review of Systems All systems: All other ROS were reviewed and found negative. Constitutional: denies: fever, chills, sweats, weakness, malaise, other Eyes: denies: pain, vision change, conjunctivae inflammation, eyelid inflammation, redness, other ENT: denies: ear pain, ear discharge, nose pain, nose discharge, nose congestion , mouth pain, mouth swelling, throat pain, throat swelling, other Respiratory: denies: cough, dry, shortness of breath, hemoptysis, SOB with excertion, pleuritic pain, sputum, wheezing, other Cardiovascular: denies: chest pain, palpitations, orthopnea, paroxysmal noc. dyspnea, edema, light headedness, other Gastrointestinal: denies: nausea, vomitting, abdominal pain, diarrhea, constipation, melena, hematochezia, other Genitourinary: denies: dysuria, frequency, incontinence, hematuria, retention, other Musculoskeletal: denies: neck pain, shoulder pain, arm pain, back pain, hand pain, leg pain, foot pain, other Skin: denies: rash, lesions, tejas, bruising, other Neurological: reports: weakness (right leg more weak than right upper extrimity) . denies: numbness, incoordination, change in speech, confusion, seizures, other - Medication Medications: Active Medications Generic Name Dose Route Start Last Admin Trade Name Freq PRN Reason Stop Dose Admin Atorvastatin Calcium 40 mg 02/25/19 21:00 02/25/19 20:51 Lipitor PO 40 mg HS GEN Administration Sodium Chloride 10 ml 02/25/19 15:50 02/25/19 20:52 Flush - Normal Saline IVF 10 ml PRN PRN Administration Saline Flush - Exam NAD, awake alert Eye: PERRL, anicteric sclera ENT: normocephalic atraumatic, no oropharyngeal lesions Neck: supple, symmetric, no JVD, no Thyromegaly Heart: RRR, no murmur, no gallops, no rubs Respiratory: CTAB, no wheezes, no rales, no ronchi Gastrointestinal: soft, non-tender, non-distended, normal bowel sounds Extremities: no cyanosis, no clubbing, no edema Skin: normal turgor, no lesions, no rashes Neurological: normal sensation to touch (weakness of right leg noted) Musculoskeletal: normal tone, normal strength Psychiatric: normal affect, normal behavior, A&O x 3 Hosp A/P (1) Acute CVA (cerebrovascular accident) Code(s): I63.9 - CEREBRAL INFARCTION, UNSPECIFIED Status: Acute (2) GERD (gastroesophageal reflux disease) Code(s): K21.9 - GASTRO-ESOPHAGEAL REFLUX DISEASE WITHOUT ESOPHAGITIS Status: Chronic Qualifiers: Esophagitis presence: without esophagitis Qualified Code(s): K21.9 - Gastro -esophageal reflux disease without esophagitis (3) Hyperlipidemia Code(s): E78.5 - HYPERLIPIDEMIA, UNSPECIFIED Status: Chronic Qualifiers: Hyperlipidemia type: unspecified Qualified Code(s): E78.5 - Hyperlipidemia , unspecified (4) Hypertension Code(s): I10 - ESSENTIAL (PRIMARY) HYPERTENSION Status: Chronic Qualifiers: Hypertension type: essential hypertension Qualified Code(s): I10 - Essential (primary) hypertension (5) Macrocytic anemia Code(s): D53.9 - NUTRITIONAL ANEMIA, UNSPECIFIED Status: Chronic (6) Multiple myeloma Code(s): C90.00 - MULTIPLE MYELOMA NOT HAVING ACHIEVED REMISSION Status: Chronic - Plan old records reviewed/req, plan discussed w/ family, PT/OT, psychotherapist social worker, speech therapy, DVT proph w/lovenox MRI not possible due to pacemaker today Echo continue plavix and low dose aspirin neurology to see today stroke team evaluation today medication reviewed as below symptomatic treatment
[2019-02-26] MEDS ORDERED: Aspirin 81 mg Enteric Coated Tablet PO SCH (12:00)
[2019-02-26] MEDS: Enoxaparin Sodium 40 MG/0.4 ML SYRINGE SC SCH (12:07)
[2019-02-26] MEDS: Famotidine 20 MG TAB PO SCH (12:07)
[2019-02-26] MEDS: Clopidogrel Bisulfate 75 MG TAB PO SCH (12:08)
--- NOTE | 2019-02-26 19:04 | CON ---
DATE OF TELEMEDICINE CONSULTATION: 02/26/2019 Nurse practitioner, [place]. CHIEF COMPLAINT: Acute stroke. HISTORY OF PRESENT ILLNESS: The patient is an 83-year-old lady, who had her daughter and another family member in the room. Daughter gave most of the medical history. The patient is very independent per daughter and she was using her walker yesterday, which is not normal for her and daughter noted she had freezing of her right foot, she could not move it and she had right-sided weakness, she could not use her arm and she also had difficulty pronouncing words. She was able to repeat sentences, but was unable to express herself and she has had head tremor for about 6 years or so. She had no loss of consciousness. When daughter called the EMS at about 8:30, the patient stated that symptom onset was at 3:00 a.m. and now the patient denies that. The patient has improved since admission. She has improvement of the right arm weakness and her speech, but she still has difficulty walking. We were unable to walk the patient and I spoke to physical therapist, who felt she might have had apraxia of the right leg and she was not able to move well. No vision problems. She has no history of double vision. PREVIOUS MEDICAL HISTORY: Positive for multiple myeloma. She has been on a new medication since January 09 and daughter thinks that medication is causing side effects. The patient has hypertension, hyperlipidemia, history of TIA, head tremor which has been long-standing, and chronic low back pain. She also has macular degeneration. PREVIOUS SURGICAL HISTORY: Bilateral hip replacement and pacemaker implantation. CURRENT MEDICATIONS: At home, she is on; 1. Tylenol. 2. Lipitor. 3. Dulcolax. 4. Tums. 5. Catapres. 6. Plavix. 7. Lovenox. 8. Pepcid. 9. Robitussin. 10. Hydralazine. 11. Claritin. 12. Zofran. 13. Senokot. 14. Ambien. ALLERGIES: SHE IS ALLERGIC TO TYLENOL, CODEINE, AND CHOCOLATE FLAVORS. SOCIAL HISTORY: Lives with her daughter. She does not smoke or drink. FAMILY HISTORY: Father passed at 65, he had heart problems. Mother at 82 from abdominal aortic aneurysm. Children are healthy. She has 3 sisters, 3 brothers , one of the brothers and sisters had cancer and from it, one brother from heart problems. REVIEW OF SYSTEMS: PULMONARY: Negative for shortness of breath. DERMATOLOGIC: Positive for rash after starting Revlimid, which has now resolved. CARDIAC: Negative for palpitations and chest pain. HEMATOLOGIC: Negative for bleeding diathesis or platelet dysfunction. GASTROINTESTINAL: Negative for nausea, vomiting, or diarrhea. NEUROLOGIC: Positive for right-sided weakness and balance problems. LABORATORY WORKUP: White count 17.2, hemoglobin 10.6, hematocrit 31.7, MCV 101, platelet 122. Chemistry; sodium 139, potassium 3.8, chloride 103, bicarbonate 27, BUN 17, creatinine 0.87, glucose 91. Triglycerides are high at 277, cholesterol 159, LDL 65, HDL 39. Urinalysis negative. PHYSICAL EXAMINATION: VITAL SIGNS: Temperature 97.9, pulse 65, respiratory rate 16, and blood pressure 150/74. GENERAL APPEARANCE: Thin built, well-nourished lady, who is very pleasant. CHEST: Clear vesicular breathing CARDIOVASCULAR: S1 and S2 heard. No murmurs. ABDOMEN: Soft. No organomegaly noted. NEUROLOGIC: Higher intellectual functions. Normal orientation to time, place, and person. Appropriate conversation. Cranial nerves 2 through 12 normal. Normal extraocular movements. Tongue midline. No atrophy noted. No facial asymmetry noted. Pupils are 2 mm bilaterally. Normal elevation of palate. Normal hearing bilaterally to finger rub. Normal sensation of face. Motor exam; bulk normal. Tone normal. Strength 5/5 on the left side; on the right side, 5/5 in upper extremity, 4/5 in the right lower extremity. Muscle groups tested are iliopsoas , hamstrings, quadriceps, ankle dorsiflexion, plantar flexion, deltoid, biceps, triceps, wrist extension and flexion, finger extension and flexion. Deep tendon reflexes 2+ throughout. Sensory normal to touch bilaterally. Cerebellar, normal [id number] and [id number]. Gait, not testable. She had a catheter hooked up to the wall and it was difficult to help her ambulate. IMPRESSION: The patient is an 83-year-old lady with acute stroke symptoms and she came in yesterday with right-sided weakness, and her examination shows right- sided weakness and some gait apraxia described to us. She also has head tremor, which is chronic. Her CT angiography showed left DEVELOPMENTAL WRITING INSTRUCTOR occlusion and we are unable to obtain MRI due to presence of pacemaker. The patient's daughter stated she has stopped taking aspirin per some doctor's advice and she recently discovered that. Based on her exam, I do think she had an acute CVA, likely in the left DEVELOPMENTAL WRITING INSTRUCTOR territory extending up to the thalamic area, which can cause aphasia, and at this time, the patient is improving steadily. RECOMMENDATIONS: 1. Please add aspirin to her treatment regimen at a dose of 81 mg per day. 2. Complete echocardiogram and carotid Dopplers. We are unable to see if we can obtain MRI of the brain if pacemaker is compatible. She will need physical therapy for improvement and she might need short-term rehab placement. I will see her again tomorrow. Job ID: [id number] MTDD
[2019-02-26] MEDS: Atorvastatin Calcium 40 MG TAB PO SCH (21:05)
[2019-02-27] MEDS: Famotidine 20 MG TAB PO SCH (08:40)
[2019-02-27] MEDS: Enoxaparin Sodium 40 MG/0.4 ML SYRINGE SC SCH (08:40)
[2019-02-27] MEDS: Clopidogrel Bisulfate 75 MG TAB PO SCH (08:40)
[2019-02-27] MEDS: Aspirin 81 mg Enteric Coated Tablet PO SCH (08:40)
--- NOTE | 2019-02-27 10:33 | PRG ---
DATE OF TELEMEDICINE SERVICE: 02/27/2019 CHIEF COMPLAINT: CVA. INTERVAL HISTORY: The patient's daughter stated she is doing better today, and she has not walked yet. Her speech is now back to normal, and she still has some weakness in the right lower extremity. CURRENT WORKUP: Lab reports; no new lab since yesterday, and her echocardiogram was within normal limits. There was no evidence of any thrombus. PHYSICAL EXAMINATION: VITAL SIGNS: Temperature 97.5, blood pressure 175/83, pulse 60, respiratory rate 20, O2 sats 98. NEUROLOGICAL: Higher intellectual functions normal. Orientation to time, place , and person. Cranial nerve examination; due to positioning of the patient yesterday, I could not detect asymmetry of the face. Today, she appears to have slight asymmetry of the face on the right side with slight facial droop. Speech is normal. Normal extraocular movements. Tongue midline. Motor examination, her strength is 5/5 bilaterally in upper extremities, and in lower extremity, strength was 5/5 as well, and left lower extremity strength was also 5/5. Gait was not tested. Involuntary movements; she still has head tremor and mild voice tremor, which is her baseline. IMPRESSION: The patient is an 83-year-old lady with acute cerebrovascular accident, likely in the left PRESS TENDER SHORT GOODS distribution based on CT angiogram. We are unable to obtain an MRI of the brain to define the lesion. At this time, she seems to be improving with regard to her strength on the right side and her speech is back to normal. RECOMMENDATIONS: 1. Please consult Physical Medicine rehab physician, so she can be placed in a short-stay rehab to improve her gait. 2. I will request CT of the head without contrast today to see the extent of her lesion. I will check on her CT later. Please call me if you have any further questions. Job ID: [id number] MTDD
--- NOTE | 2019-02-27 14:44 | CT ---
Exam: Head CT without contrast HISTORY: Previous angiogram showed a left WEB CONTENT MANAGER occlusion. Follow-up stroke. COMPARISON: 02/25/2019 FINDINGS: Hemorrhage: No intraparenchymal hemorrhage or extra-axial hematoma. Brain parenchyma: Cortical olivas-white matter differentiation is preserved. Basilar cisterns are paten t. Stable hypoattenuation involving the right caudate nucleus and anterior limb of the right internal capsule.Stable white matter hypodensities due to chronic small vessel change. Ventricular system: Ventricles and sulci are patent and symmetric. Calvarium: Intact. Sinuses and mastoid air cells: Adequate aeration. IMPRESSION: 1. No acute intracranial process. 2. No significant interval change.
--- NOTE | 2019-02-27 17:36 | PDOC.HOSPP ---
- Subjective Subjective: f/u for suspected L LEAD SPRINKLER CVA with R hemiparesis. Tolerating po intake without restriction. Receiving ASA/Plavix. - Objective Vital Signs & Weight: Vital Signs (12 hours) Temp Pulse Resp BP Pulse Ox 02/27/19 15:02 97.7 F 70 20 144/76 H 97 02/27/19 11:32 98.2 F 72 20 160/77 H 98 02/27/19 08:00 97.5 F L 60 20 175/83 H 98 Weight Weight 128 lb 1.6 oz I&O: 02/26/19 02/27/19 02/28/19 06:59 06:59 06:59 Intake Total 120 835 Output Total 800 705 Balance -680 130 Result Diagrams: 02/26/19 05:17 02/26/19 05:17 Radiology Reviewed by me: Yes (CT Brain - no acute changes; 2D echo - EF 55-60%) EKG Reviewed by me: Yes (Tele - SR) ROS - Review of Systems All systems: All other ROS were reviewed and found negative. - Medication Medications: Active Medications Generic Name Dose Route Start Last Admin Trade Name Freq PRN Reason Stop Dose Admin Aspirin 81 mg 02/27/19 09:00 02/27/19 08:40 Ecotrin PO 81 mg DAILY GEN Administration Atorvastatin Calcium 40 mg 02/25/19 21:00 02/26/19 21:05 Lipitor PO 40 mg HS GEN Administration Clopidogrel Bisulfate 75 mg 02/26/19 09:00 02/27/19 08:40 Plavix PO 75 mg DAILY GEN Administration Enoxaparin Sodium 40 mg 02/26/19 09:00 02/27/19 08:40 Lovenox SC 40 mg 0900 GEN Administration Famotidine 20 mg 02/26/19 09:00 02/27/19 08:40 Pepcid PO 20 mg DAILY GEN Administration Sodium Chloride 10 ml 02/25/19 15:50 02/26/19 21:05 Flush - Normal Saline IVF 10 ml PRN PRN Administration Saline Flush - Exam NAD, awake alert Eye: PERRL, anicteric sclera ENT: normocephalic atraumatic, no oropharyngeal lesions Neck: supple, symmetric, no JVD, no Thyromegaly Heart: RRR, no murmur, no gallops, no rubs Respiratory: CTAB, no wheezes, no rales, no ronchi Gastrointestinal: soft, non-tender, non-distended, normal bowel sounds Extremities: no cyanosis, no clubbing, no edema Neurological: CN's grossly intact, normal sensation to touch Musculoskeletal: normal tone, normal strength Psychiatric: normal behavior, A&O x 3 Hosp A/P (1) Acute CVA (cerebrovascular accident) Code(s): I63.9 - CEREBRAL INFARCTION, UNSPECIFIED Status: Acute Plan: Suspected from clinical exam but R-sided weakness rapidly improving, Rehab screen, general stroke protocol (2) Hyperlipidemia Code(s): E78.5 - HYPERLIPIDEMIA, UNSPECIFIED Status: Chronic Qualifiers: Hyperlipidemia type: unspecified Qualified Code(s): E78.5 - Hyperlipidemia , unspecified Plan: Continue Lipitor (3) Hypertension Code(s): I10 - ESSENTIAL (PRIMARY) HYPERTENSION Status: Chronic Qualifiers: Hypertension type: essential hypertension Qualified Code(s): I10 - Essential (primary) hypertension Plan: Resume home BP regimen, serial monitoring (4) Multiple myeloma Code(s): C90.00 - MULTIPLE MYELOMA NOT HAVING ACHIEVED REMISSION Status: Acute Qualifiers: Multiple myeloma remission status: not in remission Qualified Code(s): C90.00 - Multiple myeloma not having achieved remission Plan: Current chemo with Revlimid - Plan plan discussed w/ family, PT/OT, executive secretary social welfare, out of bed/ambulate, DVT proph w/SCDs Stable currently Continue general stroke protocol Likely home with HH Rehab screening ASA/Plavix AM lab: CBC
[2019-02-27] MEDS ORDERED: traMADol HCl 50 MG TAB PO SCH (18:00)
[2019-02-27] MEDS ORDERED: traMADol HCl 50 MG TAB PO PRN (18:15)
[2019-02-27] MEDS: Atorvastatin Calcium 40 MG TAB PO SCH (21:17)
[2019-02-28 05:01] LABS: Eosinophils 2 % (0-10); Hemoglobin 11.1 g/dL (12.0-16.0); Lymphocytes 22 % (21-51); MDiff Complete? YES; Mean Corpuscular HGB CONC 34.2 g/dL (32.0-36.0); Mean Corpuscular Hemoglobin 34.5 pg (27.0-31.0); Mean Platelet Volume 10.2 fL (7.4-10.4); Monocytes 22 % (0-10); Neutrophil 53 % (42-75); Platelet Count 149 thou/uL (130-400); Red Blood Cell (RBC) Count 3.22 mill/uL (4.20-5.40); White Blood Cell (WBC) Count 8.5 thou/uL (4.8-10.8)
[2019-02-28] MEDS: valACYclovir 500 MG TAB PO SCH (08:42)
[2019-02-28] MEDS: Famotidine 20 MG TAB PO SCH (08:42)
[2019-02-28] MEDS: Folic Acid 1 MG TAB PO SCH (08:42)
[2019-02-28] MEDS: Atenolol 50 MG TAB PO SCH (08:42)
[2019-02-28] MEDS: Lisinopril 2.5 MG TAB PO SCH (08:42)
[2019-02-28] MEDS: Aspirin 81 mg Enteric Coated Tablet PO SCH (08:42)
[2019-02-28] MEDS: Multivitamin W/ Minerals 1 TAB PO SCH (08:42)
[2019-02-28] MEDS: Clopidogrel Bisulfate 75 MG TAB PO SCH (08:42)
[2019-02-28] MEDS: Enoxaparin Sodium 40 MG/0.4 ML SYRINGE SC SCH (08:43)
[2019-02-28 12:05] LABS: Hemoglobin 12.5 g/dL (12.0-16.0); Mean Corpuscular HGB CONC 34.2 g/dL (32.0-36.0); Mean Corpuscular Hemoglobin 34.6 pg (27.0-31.0); RBC Distribution Width 13.4 % (11.5-14.5); Red Blood Cell (RBC) Count 3.61 mill/uL (4.20-5.40); White Blood Cell (WBC) Count 17.7 thou/uL (4.8-10.8)
--- NOTE | 2019-02-28 12:13 | CT ---
CT head noncontrast HISTORY: Altered mental status. Right facial droop. COMPARISON: 02/27/2019. FINDINGS: There is no evidence of acute intracranial hemorrhage or infarct. Old lacunar infarcts and chronic ischemic small vessel disease are similar in appearance to the prior study. No mass effect or shift of midline structures. Physiologic calcification at the basal ganglia is stable. Visualized paranasal sinuses remain well aerated. IMPRESSION: Chronic-type findings are stable. No acute intracranial abnormalities are demonstrated. Findings were called to Dr. Jefferson at 1204 hours. Code CR.
[2019-02-28] MEDS ORDERED: Sodium Chloride 0.9% 1,000 ML IV SCH (12:15)
[2019-02-28 12:22] LABS: Troponin I Less than 0.010 ng/mL (< 0.028)
[2019-02-28 12:23] LABS: Band 7 % (5-11); Eosinophils 2 % (0-10); Lymphocytes 20 % (21-51); MDiff Complete? YES; Mean Platelet Volume 11.1 fL (7.4-10.4); Monocytes 18 % (0-10); Neutrophil 53 % (42-75); Platelet Count 188 thou/uL (130-400); RBC Morphology Normal
--- NOTE | 2019-02-28 12:43 | PDOC.HOSPP ---
- Subjective Subjective: Code Green called due to flaccid RU/LE after using bedside toilet. Hx of CVA with L HOOP CUTTER involvement. - Objective Vital Signs & Weight: Vital Signs (12 hours) Temp Pulse Pulse Pulse Resp BP BP 02/28/19 11:47 76 02/28/19 08:59 74 71 186/93 H 02/28/19 08:42 60 155/79 H 02/28/19 08:00 97.7 F 60 18 02/28/19 04:00 97.2 F L 66 16 BP BP BP Pulse Ox 02/28/19 11:47 79/48 L 97 02/28/19 08:59 161/78 H 02/28/19 08:42 02/28/19 08:00 155/79 H 97 02/28/19 04:00 150/78 H 97 Weight Weight 128 lb 1.6 oz I&O: 02/27/19 02/28/19 03/01/19 06:59 06:59 06:59 Intake Total 835 240 Output Total 705 1050 Balance 130 -810 Result Diagrams: 02/28/19 11:42 02/28/19 12:16 Additional Labs: Microbiology 05/31/16 11:18 Stool Campylobacter Antigen Assay - Final 05/31/16 11:18 Stool Shiga Toxin Test - Final 05/31/16 11:18 Stool C. difficile GDH Antigen & Toxins - Final 05/30/16 15:24 Urine voided Urine Culture - Preliminary NO GROWTH AT 24 HOURS 05/30/16 11:54 Venous blood - Right Arm Blood Culture - Preliminary Specimen has been received and culture in progress. No Growth to date. 05/30/16 10:08 Venous blood - Left Arm Blood Culture - Preliminary Specimen has been received and culture in progress. No Growth to date. Laboratory Tests 05/30/16 05/30/16 05/31/16 10:10 10:10 04:33 WBC 15.1 H Hgb MCV Neutrophils % (Manual) 84 H Sodium 131 L 130 L Potassium 3.1 L 2.7 L* Chloride 87 L Creatinine 1.22 H Calcium 11.3 H Triglycerides Cholesterol LDL Cholesterol, Calc HDL Cholesterol 05/31/16 02/25/19 02/26/19 04:33 12:00 05:17 WBC 9.2 26.0 H Hgb 12.0 MCV 101.0 H Neutrophils % (Manual) 60 86 H Sodium Potassium Chloride Creatinine Calcium Triglycerides 277 H Cholesterol 159 LDL Cholesterol, Calc 65 HDL Cholesterol 39 Radiology Reviewed by me: Yes (CT brain - no acute process) EKG Reviewed by me: Yes (Tele - A-pacing) ROS - Review of Systems All systems: All other ROS were reviewed and found negative. - Medication Medications: Active Medications Generic Name Dose Route Start Last Admin Trade Name Freq PRN Reason Stop Dose Admin Aspirin 81 mg 02/27/19 09:00 02/28/19 08:42 Ecotrin PO 81 mg DAILY GEN Administration Atenolol 50 mg 02/28/19 09:00 02/28/19 08:42 Tenormin PO 50 mg DAILY GEN Administration Atorvastatin Calcium 40 mg 02/25/19 21:00 02/27/19 21:17 Lipitor PO 40 mg HS GEN Administration Clopidogrel Bisulfate 75 mg 02/26/19 09:00 02/28/19 08:42 Plavix PO 75 mg DAILY GEN Administration Enoxaparin Sodium 40 mg 02/26/19 09:00 02/28/19 08:43 Lovenox SC 40 mg 0900 GEN Administration Famotidine 20 mg 02/26/19 09:00 02/28/19 08:42 Pepcid PO 20 mg DAILY GEN Administration Folic Acid 1 mg 02/28/19 09:00 02/28/19 08:42 Folvite PO 1 mg DAILY GEN Administration Sodium Chloride 1,000 mls @ 999 mls/hr 02/28/19 12:15 02/28/19 12:22 Normal Saline 0.9% IV 02/28/19 13:15 1,000 mls .Q1H1M GEN Administration Iron/Minerals/Multivitamins 1 tab 02/28/19 09:00 02/28/19 08:42 Theragran M PO 1 tab DAILY GEN Administration Lisinopril 2.5 mg 02/28/19 09:00 02/28/19 08:42 Zestril PO 2.5 mg DAILY GEN Administration Sodium Chloride 10 ml 02/25/19 15:50 02/26/19 21:05 Flush - Normal Saline IVF 10 ml PRN PRN Administration Saline Flush Valacyclovir HCl 500 mg 02/28/19 09:00 02/28/19 08:42 Valtrex PO 500 mg DAILY GEN Administration - Exam awake alert Eye: PERRL, anicteric sclera ENT: normocephalic atraumatic, no oropharyngeal lesions Neck: supple, symmetric, no JVD, no Thyromegaly, no lymphadenopathy, no carotid bruit Heart: RRR, no murmur, no gallops, no rubs Respiratory: CTAB, no wheezes, no rales, no ronchi, normal chest expansion Gastrointestinal: soft, non-tender, non-distended, normal bowel sounds Extremities: no cyanosis, no edema Neurological: facial droop, hemiplegia Musculoskeletal: generalized weakness Psychiatric: oriented to person, oriented to place, somnolent, lethargic Hosp A/P (1) Hypotension Status: Acute Qualifiers: Hypotension type: hypotension due to drug Qualified Code(s): I95.2 - Hypotension due to drugs Plan: Iatrogenic hypotension, hold all BP meds, IVF NS x 1L bolus, serial monitoring (2) Acute CVA (cerebrovascular accident) Code(s): I63.9 - CEREBRAL INFARCTION, UNSPECIFIED Status: Acute Plan: Suspected with component of hypotension with recent administration of antihypertensives, stat CT brain now, IVF NS bolus x 1L, check CMP, CBC and Troponin I, EKG, O2 via NC, ASA/Plavix (3) Hyperlipidemia Code(s): E78.5 - HYPERLIPIDEMIA, UNSPECIFIED Status: Chronic Qualifiers: Hyperlipidemia type: unspecified Qualified Code(s): E78.5 - Hyperlipidemia , unspecified Plan: Continue Lipitor 40mg HS (4) Hypertension Code(s): I10 - ESSENTIAL (PRIMARY) HYPERTENSION Status: Chronic Qualifiers: Hypertension type: essential hypertension Qualified Code(s): I10 - Essential (primary) hypertension (5) Multiple myeloma Code(s): C90.00 - MULTIPLE MYELOMA NOT HAVING ACHIEVED REMISSION Status: Chronic Qualifiers: Multiple myeloma remission status: not in remission Qualified Code(s): C90.00 - Multiple myeloma not having achieved remission - Plan plan discussed w/ family, PT/OT, manager social work, DVT proph w/SCDs Continue Code Green with stroke protocol Stat CT brain Check CMP, CBC, Troponin Stat EKG IVF NS x 1L bolus now Trendelenberg position Hold Atenolol x 48h Total Critical Care Time: 35min
[2019-02-28 12:45] LABS: ALT (SGPT) 31 U/L (8-55); AST (SGOT) 44 U/L (5-34); Albumin 3.4 g/dL (3.4-4.8); Alkaline Phosphatase 63 U/L (40-150); Anion Gap 12 mmol/L (10-20); BUN (Urea Nitrogen) 17 mg/dL (9.8-20.1); Bilirubin, Total 0.7 mg/dL (0.2-1.2); Calc. Creatinine Clearance 36 mL/min (70-130); Calcium 8.9 mg/dL (7.8-10.44); Carbon Dioxide 28 mmol/L (23-31); Chloride 102 mmol/L (98-107); Estimated GFR-MDRD 48; Glucose 106 mg/dL (83-110); Protein, Total 6.4 g/dL (6.0-8.3); Sodium 138 mmol/L (136-145)
--- NOTE | 2019-02-28 15:45 | EKG ---
Test Reason : CODE GREEN Blood Pressure : / mmHG Vent. Rate : 072 BPM Atrial Rate : 357 BPM P-R Int : 104 ms QRS Dur : 124 ms QT Int : 442 ms P-R-T Axes : 145 -73 014 degrees QTc Int : 483 ms Electronic atrial pacemaker Left axis deviation Right bundle branch block Moderate voltage criteria for LVH, may be normal variant Abnormal ECG When compared with ECG of 25-FEB-2019 12:14, (Unconfirmed) QRS duration has decreased T wave inversion no longer evident in Anterior leads Confirmed by BASHIR CRUZ, DR. Hernandez ([id number]) on 02/28/2019 3:45:00 PM Referred By: AUSTEN Confirmed By:DR. Mary CAMEJO MD
--- NOTE | 2019-02-28 15:51 | PDOC.MOPN ---
Interval History: Patient able to use RLE more. Walked in [place] with walker. - Vital Signs Vital Signs: Vital Signs (12 hours) Temp Pulse Pulse Pulse Pulse Pulse Pulse 02/28/19 12:18 97.8 F 74 02/28/19 11:47 76 02/28/19 11:32 76 73 70 69 02/28/19 08:59 74 02/28/19 08:42 60 02/28/19 08:00 97.7 F 60 02/28/19 04:00 97.2 F L 66 Pulse Resp BP BP BP BP BP 02/28/19 12:18 16 02/28/19 11:47 02/28/19 11:32 79/48 L 159/81 H 152/74 H 169/75 H 02/28/19 08:59 71 02/28/19 08:42 155/79 H 02/28/19 08:00 18 02/28/19 04:00 16 BP BP BP BP Pulse Ox Pulse Ox 02/28/19 12:18 152/76 H 98 02/28/19 11:47 79/48 L 97 02/28/19 11:32 97 02/28/19 08:59 186/93 H 161/78 H 02/28/19 08:42 02/28/19 08:00 155/79 H 97 02/28/19 04:00 150/78 H 97 Weight Weight 128 lb 1.6 oz - Physical Exam General: Alert, Oriented x3 HEENT: PERRLA Lungs: Clear to auscultation Cardiovascular: Regular rate Abdomen: Normal bowel sounds Extremities: No clubbing Skin: No rashes Neurological: Other (RLE weakness) Psych/Mental Status: Mental status NL - Labs Result Diagrams: 02/28/19 11:42 02/28/19 12:16 Lab results: Laboratory Results - last 24 hr 02/28/19 12:16: Sodium 138, Potassium 4.0, Chloride 102, Carbon Dioxide 28, Anion Gap 12, BUN 17, Creatinine 1.10, Estimated GFR (MDRD) 48, Glucose 106, Calcium 8.9, Total Bilirubin 0.7, AST 44 H, ALT 31, Alkaline Phosphatase 63, Serum Total Protein 6.4, Albumin 3.4, Globulin 3.0, Albumin/Globulin Ratio 1.1 L 02/28/19 11:42: WBC 17.7 H, RBC 3.61 L, Hgb 12.5, Hct 36.6, MCV 101.0 H, MCH 34.6 H, MCHC 34.2, RDW 13.4, Plt Count 188, MPV 11.1 H, Neutrophils % (Manual) 53, Band Neuts % (Manual) 7, Lymphocytes % (Manual) 20 L, Monocytes % (Manual) 18 H, Eosinophils % (Manual) 2, Neutrophils # Not Reportable, Lymphocytes # Not Reportable, RBC Morph Comment Normal 02/28/19 11:42: Troponin I Less than 0.010 02/28/19 11:38: POC Glucose 96 02/28/19 04:01: WBC 8.5, RBC 3.22 L, Hgb 11.1 L, Hct 32.5 L, MCV 101.0 H, MCH 34.5 H, MCHC 34.2, RDW 13.0, Plt Count 149, MPV 10.2, Neutrophils % (Manual) 53 , Lymphocytes % (Manual) 22, Monocytes % (Manual) 22 H, Eosinophils % (Manual) 2 , Basophils % (Manual) 1 A/P - Problem (1) Acute CVA (cerebrovascular accident) Current Visit: Yes Code(s): I63.9 - CEREBRAL INFARCTION, UNSPECIFIED Status : Acute (2) Multiple myeloma Current Visit: Yes Code(s): C90.00 - MULTIPLE MYELOMA NOT HAVING ACHIEVED REMISSION Status: Chronic Qualifiers: Multiple myeloma remission status: not in remission Qualified Code(s): C90.00 - Multiple myeloma not having achieved remission (3) Diarrhea Current Visit: Yes Code(s): R19.7 - DIARRHEA, UNSPECIFIED Status: Chronic - Plan Plan: revlimid stopped Continue ASA, plavix Lomotil, imodium for diarrhea Will need Rehab
[2019-02-28] MEDS ORDERED: Diphenoxylate HCl/Atropine Tablet PO PRN (15:52)
[2019-02-28] MEDS: Atorvastatin Calcium 40 MG TAB PO SCH (21:51)
[2019-03-01] MEDS: Multivitamin W/ Minerals 1 TAB PO SCH (09:24)
[2019-03-01] MEDS: Lisinopril 2.5 MG TAB PO SCH (09:24)
[2019-03-01] MEDS: valACYclovir 500 MG TAB PO SCH (09:24)
[2019-03-01] MEDS: Folic Acid 1 MG TAB PO SCH (09:25)
[2019-03-01] MEDS: Famotidine 20 MG TAB PO SCH (09:25)
[2019-03-01] MEDS: Clopidogrel Bisulfate 75 MG TAB PO SCH (09:25)
[2019-03-01] MEDS: Aspirin 81 mg Enteric Coated Tablet PO SCH (09:25)
[2019-03-01] MEDS: Enoxaparin Sodium 40 MG/0.4 ML SYRINGE SC SCH (09:25)
--- NOTE | 2019-03-01 20:21 | PDOC.HOSPP ---
- Subjective Subjective: f/u for ?CVA and hypotensive episode in last 24h. Feels much better today, tolerating po intake, ambulating with RW/assistance. - Objective Vital Signs & Weight: Vital Signs (12 hours) Temp Pulse Pulse Pulse Resp BP BP 03/01/19 20:00 98.2 F 70 18 03/01/19 16:00 98.2 F 74 20 03/01/19 13:37 82 80 172/85 H 03/01/19 11:51 98.3 F 70 18 03/01/19 09:24 63 172/80 H BP BP BP Pulse Ox 03/01/19 20:00 138/71 95 03/01/19 16:00 134/65 95 03/01/19 13:37 154/79 H 03/01/19 11:51 170/87 H 97 03/01/19 09:24 Weight Weight 128 lb 1.6 oz I&O: 02/28/19 03/01/19 03/02/19 06:59 06:59 06:59 Intake Total 240 600 720 Output Total 1050 950 500 Balance -810 -350 220 Result Diagrams: 02/28/19 11:42 02/28/19 12:16 Additional Labs: Microbiology 05/31/16 11:18 Stool Campylobacter Antigen Assay - Final 05/31/16 11:18 Stool Shiga Toxin Test - Final 05/31/16 11:18 Stool C. difficile GDH Antigen & Toxins - Final 05/30/16 15:24 Urine voided Urine Culture - Preliminary NO GROWTH AT 24 HOURS 05/30/16 11:54 Venous blood - Right Arm Blood Culture - Preliminary Specimen has been received and culture in progress. No Growth to date. 05/30/16 10:08 Venous blood - Left Arm Blood Culture - Preliminary Specimen has been received and culture in progress. No Growth to date. Laboratory Tests 05/30/16 05/30/16 05/31/16 10:10 10:10 04:33 WBC 15.1 H Hgb MCV Neutrophils % (Manual) 84 H Sodium 131 L 130 L Potassium 3.1 L 2.7 L* Chloride 87 L Creatinine 1.22 H Calcium 11.3 H Troponin I Triglycerides Cholesterol LDL Cholesterol, Calc HDL Cholesterol 05/31/16 02/25/19 02/26/19 04:33 12:00 05:17 WBC 9.2 26.0 H Hgb 12.0 MCV 101.0 H Neutrophils % (Manual) 60 86 H Sodium Potassium Chloride Creatinine Calcium Troponin I Triglycerides 277 H Cholesterol 159 LDL Cholesterol, Calc 65 HDL Cholesterol 39 02/28/19 11:42 WBC Hgb MCV Neutrophils % (Manual) Sodium Potassium Chloride Creatinine Calcium Troponin I Less than 0.010 Triglycerides Cholesterol LDL Cholesterol, Calc HDL Cholesterol Radiology Reviewed by me: Yes (CT brain - no acute process) EKG Reviewed by me: Yes (Tele - SR) ROS - Review of Systems All systems: All other ROS were reviewed and found negative. - Medication Medications: Active Medications Generic Name Dose Route Start Last Admin Trade Name Freq PRN Reason Stop Dose Admin Aspirin 81 mg 02/27/19 09:00 03/01/19 09:25 Ecotrin PO 81 mg DAILY GEN Administration Atenolol 50 mg 02/28/19 09:00 02/28/19 08:42 Tenormin PO 50 mg DAILY GEN Administration Atorvastatin Calcium 40 mg 02/25/19 21:00 02/28/19 21:51 Lipitor PO 40 mg HS GEN Administration Clopidogrel Bisulfate 75 mg 02/26/19 09:00 03/01/19 09:25 Plavix PO 75 mg DAILY GEN Administration Enoxaparin Sodium 40 mg 02/26/19 09:00 03/01/19 09:25 Lovenox SC 40 mg 0900 GEN Administration Famotidine 20 mg 02/26/19 09:00 03/01/19 09:25 Pepcid PO 20 mg DAILY GNE Administration Folic Acid 1 mg 02/28/19 09:00 03/01/19 09:25 Folvite PO 1 mg DAILY GEN Administration Iron/Minerals/Multivitamins 1 tab 02/28/19 09:00 03/01/19 09:24 Theragran M PO 1 tab DAILY GEN Administration Lisinopril 2.5 mg 02/28/19 09:00 03/01/19 09:24 Zestril PO 2.5 mg DAILY GEN Administration Sodium Chloride 10 ml 02/25/19 15:50 02/26/19 21:05 Flush - Normal Saline IVF 10 ml PRN PRN Administration Saline Flush Valacyclovir HCl 500 mg 02/28/19 09:00 03/01/19 09:24 Valtrex PO 500 mg DAILY GEN Administration - Exam NAD, awake alert (smiling) Eye: PERRL, anicteric sclera ENT: normocephalic atraumatic, no oropharyngeal lesions Neck: supple, symmetric, no JVD, no Thyromegaly, no lymphadenopathy Heart: RRR, no gallops, no rubs, normal peripheral pulses Respiratory: CTAB, no wheezes, no rales, no ronchi, normal chest expansion Gastrointestinal: soft, non-tender, non-distended, normal bowel sounds, no palpable masses Extremities: no cyanosis, no edema Skin: normal turgor, no lesions Neurological: no focal deficits, no new deficit Musculoskeletal: normal tone, generalized weakness Psychiatric: normal behavior, A&O x 3 Hosp A/P (1) Hypotension Status: Acute Qualifiers: Hypotension type: hypotension due to drug Qualified Code(s): I95.2 - Hypotension due to drugs Plan: Likely iatrogenic/vasovagal response, resolved, hold BP regimen another 24h then reassess (2) Acute CVA (cerebrovascular accident) Code(s): I63.9 - CEREBRAL INFARCTION, UNSPECIFIED Status: Acute Plan: ? event, continue supportive mgmt, ASA/Plavix/Lipitor (3) Hyperlipidemia Code(s): E78.5 - HYPERLIPIDEMIA, UNSPECIFIED Status: Chronic Qualifiers: Hyperlipidemia type: unspecified Qualified Code(s): E78.5 - Hyperlipidemia , unspecified (4) Hypertension Code(s): I10 - ESSENTIAL (PRIMARY) HYPERTENSION Status: Chronic Qualifiers: Hypertension type: essential hypertension Qualified Code(s): I10 - Essential (primary) hypertension (5) Multiple myeloma Code(s): C90.00 - MULTIPLE MYELOMA NOT HAVING ACHIEVED REMISSION Status: Chronic Qualifiers: Multiple myeloma remission status: not in remission Qualified Code(s): C90.00 - Multiple myeloma not having achieved remission Plan: Revlimid d/c'd - Plan plan discussed w/ family, PT/OT, health and social care teacher, respiratory therapy, out of bed/ambulate, DVT proph w/SCDs Stable currently Continue routine stroke protocol PT/OT evaluation Rehab evaluation pending Likely d/c to inpt rehab in 24h
[2019-03-01] MEDS: Atorvastatin Calcium 40 MG TAB PO SCH (20:24)
[2019-03-02] MEDS: Folic Acid 1 MG TAB PO SCH (10:00)
[2019-03-02] MEDS: Lisinopril 2.5 MG TAB PO SCH (10:00)
[2019-03-02] MEDS: Aspirin 81 mg Enteric Coated Tablet PO SCH (10:00)
[2019-03-02] MEDS: Multivitamin W/ Minerals 1 TAB PO SCH (10:01)
[2019-03-02] MEDS: Famotidine 20 MG TAB PO SCH (10:02)
[2019-03-02] MEDS: Clopidogrel Bisulfate 75 MG TAB PO SCH (10:02)
[2019-03-02] MEDS: Enoxaparin Sodium 40 MG/0.4 ML SYRINGE SC SCH (10:03)
[2019-03-02] MEDS: Atenolol 50 MG TAB PO SCH (10:19)
[2019-03-02] MEDS: valACYclovir 500 MG TAB PO SCH (10:19)
[2019-03-02 16:03] VITALS: TEMP 98.3
[2019-03-02 16:38] VITALS: BP 187/90
--- NOTE | 2019-03-02 22:14 | DIS ---
DATE OF ADMISSION: 02/25/2019 DATE OF DISCHARGE: 03/02/2019 DISCHARGE DIAGNOSES: 1. Acute ischemic cerebrovascular accident in left posterior cerebral artery distribution. 2. Orthostatic hypotension, improved. 3. Hyperlipidemia. 4. Hypertension, stable. 5. Multiple myeloma, with current treatment with Revlimid. CONSULTATIONS: 1. Dr. Joe with Medical Oncology Service. 2. Dr. Warren with Neurology Service. PERTINENT LABORATORY AND X-RAY FINDINGS: Basic metabolic profile within normal limits. Troponin I negative x2. Total cholesterol 159, triglycerides 277, HDL 39, LDL 65. CBC showed a white blood cell count ranged between 8.5 to 26.0. Hemoglobin ranged between 10.[address] of the brain without contrast dated 02/25/2019, showed no acute intracranial process. Mild diffuse cerebral volume loss. CT angiogram of the [place] dated 02/25/2019, showed no hemodynamically significant stenosis within the neck. Left WORK[employer] LE[employer]ER occlusion. Portable chest x-ray dated 02/25/2019, showed no acute cardiopulmonary process. 2D transthoracic echocardiogram dated 02/27/2019, showed ejection fraction of 55% to 60%. Mild tricuspid regurgitation noted. CT of the brain without contrast dated 02/28/2019, showed chronic findings without acute process. HOSPITAL COURSE: The patient was initially admitted to the stroke unit after initially presenting with right-sided weakness of the upper and lower extremity. The patient also had dysarthria with weakness. The patient presented to the emergency room undergoing general stroke workup including CT of the brain without contrast. No specific acute infarct was identified, however, the patient underwent CT angiogram showing evidence of occlusion of the left posterior cerebral artery. The patient continued on aspirin and Plavix and was evaluated by the Neurology Service. The patient was unable to undergo MRI imaging of the brain due to a pacemaker placement and was treated medically and conservatively. The patient continued dual antiplatelet therapy in addition to Lipitor and monitored for clinical response. The patient was noted with right-sided weakness, had improved with supportive management and physical therapy. The patient did exhibit an episode of orthostatic hypotension after receiving antihypertensive regimen, treated with IV fluids and holding her blood pressure medications. The patient's blood pressure stabilized with adjustment to her medication regimen without worsening focal deficits. Due to patient's generalized weakness and ischemic CVA, the patient was deemed appropriate candidate for ongoing skilled care at [facility]. I have examined the patient at the time of discharge and discussed followup instructions. The patient verbalized understanding and in agreement, ready for discharge on 03/02/2019. DISCHARGE MEDICATIONS: 1. Premarin cream one application vaginally q.48 hours. 2. Probiotics one capsule p.o. b.i.d. 3. Revlimid 25 mg p.o. daily per Medical Oncology instructions. 4. Lisinopril 2.5 mg p.o. daily. 5. Multivitamin 1 tablet p.o. daily. 6. Omeprazole 20 mg p.o. daily. 7. Prednisone 25 mg every prior to Revlimid. 8. Tramadol 50 mg p.o. q.6 hours p.r.n. 9. Valacyclovir 500 mg p.o. daily. 10. Enteric-coated aspirin 81 mg p.o. daily. 11. Atenolol 50 mg p.o. daily. 12. Lipitor 40 mg p.o. at bedtime. 13. Plavix 75 mg p.o. daily. 14. Folic acid 1 mg p.o. daily. 15. Ambien 5 mg p.o. at bedtime p.r.n. FOLLOWUP: The patient may follow up with her primary care provider, Dr. Luis Enrique Aquino after discharge from inpatient rehabilitation. CONDITION ON DISCHARGE: Stable. ACTIVITY: Ad joslyn, rolling walker with standby/contact guard assistance. DIET: Heart healthy. CODE STATUS: Full. DISPOSITION: [facility] on 03/02/2019. TIME SPENT: Total time preparing and coordinating discharge, 34 minutes. Job ID: [id number]
== END 2019-03-02 19:04 | DRG 65 ==
LOC: ERS 11:55 → 2SE 13:41
PROVIDERS: ADMIT Internal Medicine; ATTEND Internal Medicine
DX: I63.532 Cerebral infarction due to unspecified occlusion or stenosis of left posterior cerebral artery (principal); C90.00 Multiple myeloma not having achieved remission; G81.91 Hemiplegia, unspecified affecting right dominant side; I95.1 Orthostatic hypotension; E78.5 Hyperlipidemia, unspecified; I10 Essential (primary) hypertension; R47.1 Dysarthria and anarthria; R47.01 Aphasia; G89.29 Other chronic pain; H35.30 Unspecified macular degeneration; R29.810 Facial weakness; D53.9 Nutritional anemia, unspecified; D75.89 Other specified diseases of blood and blood-forming organs; R47.81 Slurred speech; I45.10 Unspecified right bundle-branch block; D72.829 Elevated white blood cell count, unspecified; R25.1 Tremor, unspecified; Z96.643 Presence of artificial hip joint, bilateral; Z95.0 Presence of cardiac pacemaker; Z88.6 Allergy status to analgesic agent; Z88.8 Allergy status to other drugs, medicaments and biological substances; Z90.710 Acquired absence of both cervix and uterus; Z90.49 Acquired absence of other specified parts of digestive tract; Z85.828 Personal history of other malignant neoplasm of skin
CPT/HCPCS: 36415; 36416; 70450; 70496; 70498; 71045; 80048; 80053; 80061; 81003; 82550; 84484; 85007; 85025; 85027; 85610; 85730; 90471; 90670; 93005; 93010; 93306; G0009; J1650; Q9966

== ENCOUNTER 2019-04-26 11:30 | Emergency (ER) | payer MEDICARE, BC ==
[2019-04-26 12:27] LABS: #Eosinphils 0.1 thou/uL (0.0-0.7); #Lymphocytes 2.1 thou/uL (1.20-3.40); #Monocytes 1.3 thou/uL (0.11-0.59); #Neutrophils 5.6 thou/uL (1.40-6.50); %Basophils 0.3 % (0.0-1.0); %Eosinophils 0.9 % (0.0-10.0); %Monocytes 14.3 % (0.0-10.0); %Neutrophils 61.6 % (42.0-75.0); Mean Corpuscular HGB CONC 34.4 g/dL (32.0-36.0); Mean Corpuscular Hemoglobin 34.2 pg (27.0-31.0); Mean Corpuscular Volume 99.4 fL (78.0-98.0); Mean Platelet Volume 9.2 fL (7.4-10.4); Platelet Count 158 thou/uL (130-400); Red Blood Cell (RBC) Count 3.52 mill/uL (4.20-5.40); White Blood Cell (WBC) Count 9.1 thou/uL (4.8-10.8)
--- NOTE | 2019-04-26 12:31 | CT ---
CT Brain WO Con: 04/26/2019 12:09 PM CLINICAL HISTORY: Syncope. COMPARISON: 02/28/2019 FINDINGS: Hemorrhage: None. Ventricular system: Stable. Cerebral parenchyma: Microvascular ischemic disease is present, and there are superimposed, multifoca l, bilateral lacunar infarctions most notable within the right basal ganglia, and left thalamus, similar appearing. Midline shift: None. Mass: No mass effect. Calvarium: Normal. Visualized Paranasal sinuses: Clear. IMPRESSION: No acute intracranial hemorrhage or mass effect. 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
--- NOTE | 2019-04-26 12:43 | RAD ---
Exam: Chest one view HISTORY:Syncope Comparison: 02/25/2019 FINDINGS: Lungs: No masses or consolidation. Cardiac silhouette:Stable. Left-sided dual lead cardiac pacing device remains. There is vascular calc ification. Pulmonary vessels: Normal Pleural Spaces: Clear Pneumothorax: None Osseous abnormalities: None of acuity. IMPRESSION: Stable chest.
[2019-04-26 12:50] LABS: ALT (SGPT) 16 U/L (8-55); AST (SGOT) 21 U/L (5-34); Albumin 3.7 g/dL (3.4-4.8); Alkaline Phosphatase 52 U/L (40-110); Anion Gap 12 mmol/L (10-20); BUN (Urea Nitrogen) 15 mg/dL (9.8-20.1); Bilirubin, Total 0.6 mg/dL (0.2-1.2); Calc. Creatinine Clearance 0 mL/min (70-130); Calcium 9.6 mg/dL (7.8-10.44); Carbon Dioxide 30 mmol/L (23-31); Chloride 100 mmol/L (98-107); Estimated GFR-MDRD 51; Globulin 2.6 g/dL (2.4-3.5); Glucose 138 mg/dL (83-110); Potassium 3.8 mmol/L (3.5-5.1); Protein, Total 6.3 g/dL (6.0-8.3); Sodium 138 mmol/L (136-145)
== END 2019-04-26 13:10 | disposition home or self-care (01) ==
LOC: ERS 11:30
DX: E86.0 Dehydration (principal); Z86.73 Personal history of transient ischemic attack (TIA), and cerebral infarction without residual deficits; E78.5 Hyperlipidemia, unspecified; I10 Essential (primary) hypertension; Z79.899 Other long term (current) drug therapy; Z79.82 Long term (current) use of aspirin
CPT/HCPCS: 36415; 70450; 71045; 80053; 84484; 85025; 93005; 94760; 96360

== ENCOUNTER 2020-11-08 13:22 | Inpatient (IN) | payer MEDICARE, BC ==
[2020-11-08 15:15] LABS: #Lymphocytes 2.6 thou/uL (1.20-3.40); #Monocytes 1.1 thou/uL (0.11-0.59); #Neutrophils 5.9 thou/uL (1.40-6.50); %Basophils 0.4 % (0.0-1.0); %Eosinophils 0.4 % (0.0-10.0); %Lymphocytes 26.6 % (21.0-51.0); %Monocytes 11.7 % (0.0-10.0); Mean Corpuscular HGB CONC 33.1 g/dL (32.0-36.0); Mean Corpuscular Hemoglobin 34.1 pg (27.0-31.0); Mean Platelet Volume 7.9 fL (7.4-10.4); Platelet Count 222 thou/uL (130-400); RBC Distribution Width 12.7 % (11.5-14.5); Red Blood Cell (RBC) Count 3.21 mill/uL (4.20-5.40); White Blood Cell (WBC) Count 9.7 thou/uL (4.8-10.8)
[2020-11-08 15:39] LABS: ALT (SGPT) 19 U/L (8-55); AST (SGOT) 24 U/L (5-34); Albumin 3.4 g/dL (3.4-4.8); Alkaline Phosphatase 64 U/L (40-110); Anion Gap 13 mmol/L (10-20); BUN (Urea Nitrogen) 12 mg/dL (9.8-20.1); Bilirubin, Total 0.3 mg/dL (0.2-1.2); Calc. Creatinine Clearance 0 mL/min (70-130); Calcium 8.6 mg/dL (7.8-10.44); Carbon Dioxide 20 mmol/L (23-31); Chloride 113 mmol/L (98-107); Globulin 2.3 g/dL (2.4-3.5); Glucose 90 mg/dL (83-110); Potassium 4.2 mmol/L (3.5-5.1); Protein, Total 5.7 g/dL (5.8-8.1); Sodium 142 mmol/L (136-145)
[2020-11-08] MEDS ORDERED: Aspirin Chewable 81 MG TAB ONE (16:22)
[2020-11-08] MEDS ORDERED: Furosemide 40 MG/4 ML VIAL ONE (16:22)
[2020-11-08 16:28] LABS: Bilirubin Negative (Negative); Blood, Urine Negative (Negative); Clarity Clear (Clear); Glucose, Urine (Dipstick) Normal (Negative); Ketone, Urine Negative (Negative); Leukocyte Negative Leu/uL (Negative); Nitrite Negative (Negative); Protein, Urine (Dipstick) Negative (Neg-Trace); Specific Gravity, Urine 1.012 (1.002-1.036); Urobilinogen Normal mg/dL (Less than 2); pH, Urine 5.5 (5.0-9.0)
[2020-11-08] MEDS ORDERED: Zolpidem Tartrate 5 MG TAB PO PRN (19:13)
[2020-11-08] MEDS ORDERED: Senokot S 8.6-50 MG TAB PO PRN (19:16)
[2020-11-08] MEDS ORDERED: Acetaminophen 325 MG TAB PO PRN (19:16)
[2020-11-08] MEDS ORDERED: Ondansetron PF 4 MG/2 ML Vial IVP PRN (19:16)
[2020-11-08] MEDS ORDERED: Atorvastatin Calcium 40 MG TAB PO SCH (21:00)
[2020-11-08] MEDS: Lactinex Tablet PO SCH (22:37)
[2020-11-09] MEDS: traMADol HCl 50 MG TAB PO SCH ×3 (00:42→12:15)
[2020-11-09 03:32] VITALS: BMI 19.1
[2020-11-09 04:34] LABS: #Lymphocytes 4.2 thou/uL (1.20-3.40); #Monocytes 1.6 thou/uL (0.11-0.59); #Neutrophils 6.5 thou/uL (1.40-6.50); %Basophils 0.4 % (0.0-1.0); %Eosinophils 0.4 % (0.0-10.0); %Monocytes 12.8 % (0.0-10.0); %Neutrophils 52.5 % (42.0-75.0); Mean Corpuscular HGB CONC 32.5 g/dL (32.0-36.0); Mean Corpuscular Hemoglobin 33.5 pg (27.0-31.0); Mean Platelet Volume 7.9 fL (7.4-10.4); Platelet Count 225 thou/uL (130-400); RBC Distribution Width 12.9 % (11.5-14.5); Red Blood Cell (RBC) Count 3.57 mill/uL (4.20-5.40); White Blood Cell (WBC) Count 12.3 thou/uL (4.8-10.8)
[2020-11-09 04:54] LABS: Anion Gap 16 mmol/L (10-20); BUN (Urea Nitrogen) 12 mg/dL (9.8-20.1); Calc. Creatinine Clearance 25 mL/min (70-130); Calcium 9.1 mg/dL (7.8-10.44); Carbon Dioxide 20 mmol/L (23-31); Chloride 109 mmol/L (98-107); Glucose 86 mg/dL (83-110); Potassium 3.5 mmol/L (3.5-5.1); Sodium 141 mmol/L (136-145)
[2020-11-09 05:34] LABS: SARS-CoV-2 PCR by NAA Not Detected (NotDetected)
[2020-11-09] MEDS: Lactinex Tablet PO SCH (08:43)
[2020-11-09] MEDS ORDERED: Folic Acid 1 MG TAB PO SCH (09:00)
[2020-11-09] MEDS ORDERED: Lenalidomide [Revlimid] 25 MG Capsule PO SCH (09:00)
[2020-11-09] MEDS ORDERED: Multivitamin W/ Minerals 1 TAB PO SCH (09:00)
[2020-11-09] MEDS ORDERED: Lisinopril 2.5 MG TAB PO SCH (09:00)
[2020-11-09] MEDS ORDERED: Aspirin 81 mg Enteric Coated Tablet PO SCH (09:00)
[2020-11-09] MEDS ORDERED: Clopidogrel Bisulfate 75 MG TAB PO SCH (09:00)
[2020-11-09] MEDS ORDERED: valACYclovir 500 MG TAB PO SCH (09:00)
[2020-11-09] MEDS ORDERED: Gentamicin 80 MG/2 ML VIAL ONE (13:21)
[2020-11-09] MEDS ORDERED: CEFAZOLIN 1 GM VIAL ONE (13:21)
[2020-11-09] MEDS ORDERED: Lidocaine 1% (PF) 30 ML VIAL ONE ×2 (13:22)
[2020-11-09] MEDS ORDERED: Midazolam HCl 2 mg/2 ml Vial ONE (14:33)
[2020-11-09] MEDS ORDERED: Fentanyl 100 MCG/2 ML VIAL ONE (14:33)
[2020-11-09 15:34] VITALS: BP 124/63; TEMP 97.2
[2020-11-09] MEDS ORDERED: Cephalexin 250 MG CAP PO SCH (22:00)
[2020-11-15] MEDS ORDERED: predniSONE 5 MG TAB PO SCH (08:00)
== END 2020-11-09 18:45 | disposition home or self-care (01) | DRG 259 ==
LOC: ERS 13:22 → 2NO 16:17
PROVIDERS: ADMIT Internal Medicine; ATTEND Internal Medicine
PROC: 0JH606Z Insertion of Pacemaker, Dual Chamber into Chest Subcutaneous Tissue and Fascia, Open Approach (ICD-10-PCS; principal; 2020-11-09)
PROC: 0JPT0PZ Removal of Cardiac Rhythm Related Device from Trunk Subcutaneous Tissue and Fascia, Open Approach (ICD-10-PCS; 2020-11-09)
DX: Z45.010 Encounter for checking and testing of cardiac pacemaker pulse generator [battery] (principal); C90.00 Multiple myeloma not having achieved remission; E78.5 Hyperlipidemia, unspecified; I25.10 Atherosclerotic heart disease of native coronary artery without angina pectoris; N18.9 Chronic kidney disease, unspecified; Z66 Do not resuscitate; R25.1 Tremor, unspecified; Z96.642 Presence of left artificial hip joint; M54.5 Low back pain; G89.29 Other chronic pain; I12.9 Hypertensive chronic kidney disease with stage 1 through stage 4 chronic kidney disease, or unspecified chronic kidney disease; Z86.73 Personal history of transient ischemic attack (TIA), and cerebral infarction without residual deficits; Z88.8 Allergy status to other drugs, medicaments and biological substances; Z88.5 Allergy status to narcotic agent; Z91.018 Allergy to other foods; Z79.899 Other long term (current) drug therapy; Z79.51 Long term (current) use of inhaled steroids; Z79.02 Long term (current) use of antithrombotics/antiplatelets; Z90.49 Acquired absence of other specified parts of digestive tract; Z90.710 Acquired absence of both cervix and uterus; Z85.828 Personal history of other malignant neoplasm of skin
CPT/HCPCS: 33228; 36415; 71045; 80048; 80053; 81003; 83880; 84484; 85025; 87635; 93306; 96374; 99152; C1785; J0690; J1580; J1940; J2001; J2250; J3010; U0003; U0005

== ENCOUNTER 2022-09-20 19:32 | Day surgery (SDC) | payer MEDICARE, BC ==
[2022-09-20 20:41] LABS: #Basophils 0.1 thou/uL (0.0-0.2); #Eosinphils 0.1 thou/uL (0.0-0.7); #Lymphocytes 4.2 thou/uL (1.20-3.40); #Monocytes 1.5 thou/uL (0.11-0.59); #Neutrophils 10.4 thou/uL (1.40-6.50); %Basophils 0.5 % (0.0-1.0); %Eosinophils 0.7 % (0.0-10.0); %Lymphocytes 25.6 % (21.0-51.0); %Monocytes 9.4 % (0.0-10.0); %Neutrophils 63.8 % (42.0-75.0); Mean Corpuscular HGB CONC 33.3 g/dL (32.0-36.0); Mean Corpuscular Hemoglobin 32.6 pg (27.0-31.0); Mean Corpuscular Volume 97.8 fl (78.0-98.0); Mean Platelet Volume 6.6 fL (7.4-10.4); Platelet Count 386 10x3/uL (130-400); Red Blood Cell (RBC) Count 3.67 mill/uL (4.20-5.40); White Blood Cell (WBC) Count 16.3 10x3/uL (4.8-10.8)
[2022-09-20] MEDS ORDERED: Metoclopramide HCl 10 MG/2 ML VIAL ONE (20:42)
[2022-09-20] MEDS ORDERED: SUGAMMADEX SODIUM 200 MG/2 ML VIAL ONE (20:56)
[2022-09-20] MEDS ORDERED: Ketamine 50 MG/ML (10ML VIAL) ONE ×2 (20:56→22:43)
[2022-09-20] MEDS ORDERED: fentaNYL PF 100 MCG/2 ML SYRINGE ONE (20:58)
[2022-09-20 21:03] LABS: ALT (SGPT) 11 U/L (8-55); AST (SGOT) 19 U/L (5-34); Albumin 3.9 g/dL (3.4-4.8); Alkaline Phosphatase 70 U/L (40-110); Anion Gap 14 mmol/L (10-20); BUN (Urea Nitrogen) 17 mg/dL (9.8-20.1); Bilirubin, Total 0.3 mg/dL (0.2-1.2); Calc. Creatinine Clearance 0 mL/min (70-130); Carbon Dioxide 23 mmol/L (23-31); Chloride 107 mmol/L (98-107); Estimated GFR 40; Globulin 2.5 g/dL (2.4-3.5); Glucose 91 mg/dL (83-110); Potassium 3.9 mmol/L (3.5-5.1); Protein, Total 6.4 g/dL (5.8-8.1); Sodium 140 mmol/L (136-145)
[2022-09-20] MEDS ORDERED: Lidocaine 1% PF 5 ML VIAL ONE (21:41)
[2022-09-20] MEDS ORDERED: PROPOFOL 200 MG/20 ML VIAL ONE (21:41)
[2022-09-20] MEDS ORDERED: Rocuronium Bromide 10 MG/ML (10ML VIAL) ONE (21:41)
[2022-09-20] MEDS ORDERED: Succinylcholine Chloride 100 MG/5 ML SYRINGE FS ONE (21:41)
[2022-09-20] MEDS ORDERED: Ondansetron PF 4 MG/2 ML Vial ONE (21:41)
[2022-09-20 21:52] LABS: SARS-CoV-2 NAA Rapid Test Not Detected (NotDetected)
== END 2022-09-20 23:30 | disposition home or self-care (01) ==
LOC: ERS 19:32 → SDC/OP 21:47
PROVIDERS: ATTEND Internal Medicine
PROC: 0DC38ZZ Extirpation of Matter from Lower Esophagus, Via Natural or Artificial Opening Endoscopic (ICD-10-PCS; principal; 2022-09-20)
DX: T18.128A Food in esophagus causing other injury, initial encounter (principal); K22.11 Ulcer of esophagus with bleeding; K22.2 Esophageal obstruction; K31.7 Polyp of stomach and duodenum; K44.9 Diaphragmatic hernia without obstruction or gangrene; G89.29 Other chronic pain; M54.9 Dorsalgia, unspecified; E78.5 Hyperlipidemia, unspecified; I10 Essential (primary) hypertension; K21.9 Gastro-esophageal reflux disease without esophagitis; C90.00 Multiple myeloma not having achieved remission; Z86.73 Personal history of transient ischemic attack (TIA), and cerebral infarction without residual deficits; Z88.5 Allergy status to narcotic agent; Z88.6 Allergy status to analgesic agent; Z95.0 Presence of cardiac pacemaker; Z20.822 Contact with and (suspected) exposure to COVID-19; X58.XXXA Exposure to other specified factors, initial encounter
CPT/HCPCS: 43247; 71045; 80053; 85025; U0002; 36415; J1611; J2405; J2704; J2765

== ENCOUNTER 2023-03-12 19:29 | Emergency (ER) | payer MEDICARE, BC | END 2023-03-12 20:51 | disposition home or self-care (01) | LOC: ERS 19:29 | DX: S70.02XA Contusion of left hip, initial encounter (principal); E78.5 Hyperlipidemia, unspecified; I10 Essential (primary) hypertension; W22.8XXA Striking against or struck by other objects, initial encounter ==

== ENCOUNTER 2024-04-16 13:16 | Inpatient (IN) | payer MEDICARE ==
[2024-04-16 13:59] LABS: #Basophils 0.05 10x3/uL (0.0-0.2); #Eosinphils Less than 0.03 10x3/uL (0.0-0.7); %Basophils 0.4 % (0.0-1.0); %Eosinophils 0.1 % (0.0-10.0); %Lymphocytes 38.6 % (21.0-51.0); %Monocytes 11.4 % (0.0-10.0); Hemoglobin 11.9 g/dL (12.0-16.0); Mean Corpuscular HGB CONC 33.1 g/dL (32.0-36.0); Mean Corpuscular Hemoglobin 31.7 pg (27.0-31.0); Mean Platelet Volume 9.6 fL (7.4-10.4); Platelet Count 265 10x3/uL (130-400); RBC Distribution Width 12.2 % (11.5-14.5); Red Blood Cell (RBC) Count 3.75 mill/uL (4.20-5.40)
[2024-04-16 14:21] LABS: ALT (SGPT) 12 U/L (8-55); AST (SGOT) 22 U/L (5-34); Albumin 3.4 g/dL (3.4-4.8); Alkaline Phosphatase 78 U/L (40-110); Anion Gap 13 mmol/L (10-20); BUN (Urea Nitrogen) 8 mg/dL (9.8-20.1); Bilirubin, Total 0.3 mg/dL (0.2-1.2); Calc. Creatinine Clearance 0 mL/min (70-130); Calcium 9.6 mg/dL (7.8-10.44); Carbon Dioxide 26 mmol/L (23-31); Chloride 105 mmol/L (98-107); Estimated GFR 49; Glucose 109 mg/dL (83-110); Magnesium 1.5 mg/dL (1.6-2.6); Protein, Total 6.4 g/dL (5.8-8.1); Sodium 140 mmol/L (136-145)
[2024-04-16] MEDS ORDERED: Magnesium 2 GM/50 ML BAG (IN WATER) ONE (16:27)
[2024-04-16] MEDS ORDERED: cefTRIAXone (ROCEPHIN) 1 GM VIAL ONE (17:17)
[2024-04-16] MEDS ORDERED: Sodium Chloride 0.9% 100 ML ONE (17:18)
[2024-04-16 17:28] LABS: Bilirubin Negative (Negative); Blood, Urine Negative (Negative); CAUTI Indications for Culture Immunosuppressed; Clarity Clear (Clear); Glucose, Urine (Dipstick) Normal (Negative); Ketone, Urine Negative (Negative); Leukocyte 500 Leu/uL (Negative); Nitrite Negative (Negative); Protein, Urine (Dipstick) Negative (Neg-Trace); RBC/HPF 0-3 HPF (0-3); Specific Gravity, Urine 1.039 (1.002-1.036); Squamous Epithelial None Seen HPF (0-3); Urobilinogen Normal mg/dL (Less than 2)
[2024-04-16 17:31] LABS: Bacteria/HPF 1+ HPF (None Seen)
[2024-04-16 17:33] LABS: Urine Culture Reflex Yes Yes
[2024-04-16] MEDS ORDERED: metroNIDAZOLE 500 MG (100 mL) BAG ONE (17:36)
[2024-04-16] MEDS ORDERED: Ondansetron PF 4 MG/2 ML Vial IVP PRN (19:24)
[2024-04-16] MEDS ORDERED: Ondansetron ODT 4 MG TAB PO PRN (19:24)
[2024-04-16] MEDS: Sodium Chloride 0.9% 1,000 ML IV SCH (20:49)
[2024-04-16 20:54] VITALS: BMI 21.0
[2024-04-17] MEDS: metroNIDAZOLE 500 MG in Premix 1 BAG IVPB SCH (01:48)
[2024-04-17 06:27] LABS: #Basophils 0.04 10x3/uL (0.0-0.2); %Basophils 0.3 % (0.0-1.0); %Eosinophils 0.2 % (0.0-10.0); %Lymphocytes 31.5 % (21.0-51.0); %Monocytes 8.6 % (0.0-10.0); %Neutrophils 59.1 % (42.0-75.0); ALT (SGPT) 9 U/L (8-55); AST (SGOT) 19 U/L (5-34); Albumin 2.7 g/dL (3.4-4.8); Alkaline Phosphatase 58 U/L (40-110); Anion Gap 10 mmol/L (10-20); BUN (Urea Nitrogen) 7 mg/dL (9.8-20.1); Bilirubin, Total 0.4 mg/dL (0.2-1.2); Calc. Creatinine Clearance 34 mL/min (70-130); Calcium 8.1 mg/dL (7.8-10.44); Carbon Dioxide 24 mmol/L (23-31); Chloride 110 mmol/L (98-107); Estimated GFR 57; Globulin 2.2 g/dL (2.4-3.5); Glucose 83 mg/dL (83-110); Hematocrit 30.8 % (36.0-47.0); Hemoglobin 10.1 g/dL (12.0-16.0); Mean Corpuscular HGB CONC 32.8 g/dL (32.0-36.0); Mean Corpuscular Hemoglobin 32.2 pg (27.0-31.0); Mean Corpuscular Volume 98.1 fL (78.0-98.0); Mean Platelet Volume 10.1 fL (7.4-10.4); Platelet Count 221 10x3/uL (130-400); Potassium 3.4 mmol/L (3.5-5.1); Protein, Total 4.9 g/dL (5.8-8.1); RBC Distribution Width 12.4 % (11.5-14.5); Red Blood Cell (RBC) Count 3.14 mill/uL (4.20-5.40); Sodium 141 mmol/L (136-145)
[2024-04-17] MEDS: Aspirin 81 mg Enteric Coated Tablet PO SCH (09:25)
[2024-04-17] MEDS: Folic Acid 1 MG TAB PO SCH (09:27)
[2024-04-17] MEDS: Enoxaparin 30 MG (0.3 mL) SYRINGE SC SCH (09:27)
[2024-04-17] MEDS: Pantoprazole DR 40 MG TAB PO SCH (09:27)
[2024-04-17] MEDS: Lisinopril 2.5 MG TAB PO SCH (09:27)
[2024-04-17] MEDS: Floranex 1 GM Packet PO SCH ×2 (09:38→20:42)
[2024-04-17] MEDS ORDERED: Floranex 1 GM Packet PO SCH (21:00)
[2024-04-18 00:33] LABS: Campy jejuni + coli by PCR Negative (Negative); STEC Shiga Toxin 1+2 Negative (Negative); Salmonella spp. by PCR Negative (Negative); Shigella spp + EIEC by PCR Negative (Negative)
[2024-04-18] MEDS ORDERED: Loperamide HCl 2 MG CAP PO PRN (08:15)
[2024-04-18] MEDS: Enoxaparin 40 MG (0.4 mL) SYRINGE SC SCH (09:56)
[2024-04-18] MEDS: Potassium Chloride 20 MEQ TAB PO SCH (09:56)
[2024-04-18] MEDS: Multivitamin W/ Minerals 1 TAB PO SCH (09:56)
[2024-04-18] MEDS: cefTRIAXone\\ROCEPHIN 1 GM in Sodium Chloride 0.9% 100 ML IVPB SCH (17:08)
[2024-04-18] MEDS: Sodium Chloride 0.9% 1,000 ML IV SCH (17:08)
[2024-04-19 08:48] LABS: #Basophils 0.04 10x3/uL (0.0-0.2); %Basophils 0.3 % (0.0-1.0); %Eosinophils 0.3 % (0.0-10.0); %Lymphocytes 32.7 % (21.0-51.0); %Monocytes 11.2 % (0.0-10.0); %Neutrophils 54.9 % (42.0-75.0); Hematocrit 31.4 % (36.0-47.0); Hemoglobin 10.3 g/dL (12.0-16.0); Mean Corpuscular HGB CONC 32.8 g/dL (32.0-36.0); Mean Corpuscular Hemoglobin 32.2 pg (27.0-31.0); Mean Corpuscular Volume 98.1 fL (78.0-98.0); Mean Platelet Volume 10.1 fL (7.4-10.4); Platelet Count 208 10x3/uL (130-400); RBC Distribution Width 12.7 % (11.5-14.5)
[2024-04-19 09:13] LABS: Anion Gap 10 mmol/L (10-20); BUN (Urea Nitrogen) 4 mg/dL (9.8-20.1); Calc. Creatinine Clearance 38 mL/min (70-130); Calcium 8.1 mg/dL (7.8-10.44); Carbon Dioxide 22 mmol/L (23-31); Chloride 112 mmol/L (98-107); Estimated GFR 66; Glucose 85 mg/dL (83-110); Potassium 3.5 mmol/L (3.5-5.1); Sodium 140 mmol/L (136-145)
[2024-04-20 11:37] VITALS: BP 146/65; TEMP 97.6
== END 2024-04-20 16:42 | disposition home or self-care (01) | DRG 394 ==
LOC: ERS 13:16 → SUATTDRO 13:16 → T4-B 18:39 → OBSVTOIN 04-17 09:27
PROVIDERS: ADMIT Family Medicine; ATTEND Hospitalist
DX: K52.1 Toxic gastroenteritis and colitis (principal); C90.00 Multiple myeloma not having achieved remission; N39.0 Urinary tract infection, site not specified; E78.5 Hyperlipidemia, unspecified; I10 Essential (primary) hypertension; G89.29 Other chronic pain; E86.0 Dehydration; B96.1 Klebsiella pneumoniae [K. pneumoniae] as the cause of diseases classified elsewhere; R53.1 Weakness; T45.1X5A Adverse effect of antineoplastic and immunosuppressive drugs, initial encounter; Z96.642 Presence of left artificial hip joint; Z88.5 Allergy status to narcotic agent; Z88.8 Allergy status to other drugs, medicaments and biological substances; Z90.49 Acquired absence of other specified parts of digestive tract; Z90.710 Acquired absence of both cervix and uterus; Z98.890 Other specified postprocedural states; Z95.0 Presence of cardiac pacemaker
CPT/HCPCS: 36415; 36416; 74177; 80048; 80053; 81001; 83630; 83735; 85025; 87077; 87086; 87186; 87505; 93005; 96365; 96367; 96375; G0378; J0696; J1650; J3475; J7030